=== PATIENT | male | born 1950 | race African-American/Black ===

== ENCOUNTER 2017-08-29 17:15 | Inpatient (IN) | payer MEDICARE, OTHER, SELFPAY ==
[2017-08-29] MEDS ORDERED: Acetaminophen 500 MG TAB ONE (18:37)
[2017-08-29 18:59] LABS: Hemoglobin 12.1 g/dL (14.0-18.0); Mean Corpuscular HGB CONC 32.2 g/dL (32.0-36.0); Mean Corpuscular Hemoglobin 28.3 pg (27.0-31.0); Mean Corpuscular Volume 87.7 fl (80.0-94.0); Mean Platelet Volume 8.4 fL (7.4-10.4); Platelet Count 193 thou/uL (130-400); RBC Distribution Width 13.7 % (11.5-14.5); Red Blood Cell (RBC) Count 4.28 mill/uL (4.70-6.10); White Blood Cell (WBC) Count 12.7 thou/uL (4.8-10.8)
[2017-08-29 19:17] LABS: ALT (SGPT) 11 U/L (8-55); AST (SGOT) 20 U/L (5-34); Albumin 4.5 g/dL (3.4-4.8); Alkaline Phosphatase 112 U/L (40-150); Anion Gap 11 mmol/L (10-20); BUN (Urea Nitrogen) 16 mg/dL (8.4-25.7); Bilirubin, Total 0.4 mg/dL (0.2-1.2); Calc. Creatinine Clearance 0 mL/min (70-130); Carbon Dioxide 30 mmol/L (23-31); Chloride 100 mmol/L (98-107); Estimated GFR-MDRD 57; Globulin 3.3 g/dL (2.4-3.5); Glucose 155 mg/dL (80-115); Magnesium 1.8 mg/dL (1.6-2.6); Potassium 4.2 mmol/L (3.5-5.1); Protein, Total 7.8 g/dL (5.8-8.1); Sodium 137 mmol/L (136-145)
[2017-08-29 19:22] LABS: CKMB 1.5 ng/mL (0-6.6); Troponin I 0.019 ng/mL (< 0.028)
[2017-08-29 19:24] LABS: Band 6 % (5-11); Eosinophils 1 % (0-10); Lymphocytes 19 % (21-51); MDiff Complete? YES; Monocytes 9 % (0-10); Neutrophil 63 % (42-75); Ovalocytes SLIGHT = 2-5 cells (100X) (0-1/hpf); PLT Morphology Comment Appears Adequate; Polychromasia SLIGHT = 2-3 cells (100X) (0-2/hpf); Reactive Lymphocytes 1 % (0-10)
[2017-08-29 19:45] LABS: Bilirubin Negative (Negative); Blood, Urine Negative (Negative); Clarity CLEAR (Clear); Glucose, Urine (Dipstick) Negative (Negative); Leukocyte Trace (Negative); Nitrite Negative (Negative); Protein, Urine (Dipstick) Trace mg/dL (Neg-Trace); Urobilinogen 0.2 mg/dL (0.2-1.0); pH, Urine 5.5 (5.0-9.0)
[2017-08-29 19:48] LABS: Bacteria/HPF None Seen HPF (None Seen); Hyaline Casts/LPF 0-3 HYALINE CAST LPF (0-3 Hyaline); Squamous Epithelial 0-3 HPF (0-3); WBC/HPF 0-3 HPF (0-3)
[2017-08-29] MEDS ORDERED: Piperacillin/Tazobactam 4.5 GM VIAL ONE (20:24)
--- NOTE | 2017-08-29 20:38 | RAD ---
AP VIEW CHEST: 08/29/17 HISTORY: Fever. Congestive heart failure. Sepsis. AP view chest obtained on 08/29/17. Comparison made to a previous exam from 07/26/16. AP view chest demonstrates intracardiac defibrillator. The lungs are well aerated. No evidence of act ilda intrathoracic disease seen. No evidence of effusions, pneumonia or pneumothorax seen. IMPRESSION: Unremarkable AP view chest. POS: [facility]
[2017-08-29 21:37] LABS: Troponin I 0.019 ng/mL (< 0.028)
[2017-08-29 22:50] VITALS: BMI 32.5
[2017-08-30] MEDS ORDERED: Ondansetron ODT 4 MG TAB SL PRN (00:05)
[2017-08-30] MEDS ORDERED: Ondansetron HCl/PF 4 MG/2 ML Vial IVP PRN ×2 (00:05→00:12)
[2017-08-30] MEDS ORDERED: Acetaminophen 325 MG TAB PO PRN (00:05)
[2017-08-30] MEDS ORDERED: Dextrose 5% in Water 1,000 ML IV PRN (00:12)
[2017-08-30] MEDS ORDERED: hydrALAZINE 20 MG/ML VIAL SLOW IVP PRN (00:12)
[2017-08-30] MEDS ORDERED: Dextrose 50% Abboject 50 ML SYRINGE SLOW IVP PRN (00:12)
[2017-08-30] MEDS ORDERED: HumaLOG 300 UNITS/3 ML VIAL SC PRN (00:12)
[2017-08-30] MEDS ORDERED: Acetaminophen 500 MG TAB PO PRN (00:12)
[2017-08-30] MEDS ORDERED: cloNIDine 0.1 MG TAB PO PRN (00:12)
[2017-08-30] MEDS ORDERED: Ondansetron ODT 4 MG TAB PO PRN (00:12)
[2017-08-30] MEDS ORDERED: Sodium Chloride 0.9% 1,000 ML IV SCH ×2 (00:15)
[2017-08-30] MEDS ORDERED: PROVENTIL INHALER 6.7 G (200 INHALATIONS) INH PRN (01:00)
[2017-08-30 01:09] LABS: Troponin I 0.014 ng/mL (< 0.028)
[2017-08-30] MEDS ORDERED: Piperacillin/Tazobactam 4.5 GM in Sodium Chloride 0.9% 100 ML IVPB SCH (02:00)
[2017-08-30] MEDS: Insulin NPH/Reg Insulin Hm 300 UNITS/3 ML VIAL SC SCH ×2 (02:34→22:00)
[2017-08-30 05:00] LABS: Anion Gap 14 mmol/L (10-20); BUN (Urea Nitrogen) 16 mg/dL (8.4-25.7); Calc. Creatinine Clearance 59 mL/min (70-130); Calcium 9.5 mg/dL (7.8-10.44); Carbon Dioxide 26 mmol/L (23-31); Chloride 98 mmol/L (98-107); Estimated GFR-MDRD 52; Glucose 253 mg/dL (80-115); Potassium 3.9 mmol/L (3.5-5.1); Sodium 134 mmol/L (136-145)
[2017-08-30 05:12] LABS: Band 27 % (5-11); Hemoglobin 11.3 g/dL (14.0-18.0); Hypochromia SLIGHT = 6-15 cells (100X) (0-5/hpf); Lymphocytes 13 % (21-51); MDiff Complete? YES; Mean Corpuscular HGB CONC 32.2 g/dL (32.0-36.0); Mean Corpuscular Hemoglobin 28.5 pg (27.0-31.0); Mean Corpuscular Volume 88.4 fl (80.0-94.0); Monocytes 13 % (0-10); Neutrophil 47 % (42-75); PLT Morphology Comment Appears Adequate; Platelet Count 169 thou/uL (130-400); RBC Distribution Width 13.9 % (11.5-14.5); Red Blood Cell (RBC) Count 3.95 mill/uL (4.70-6.10); White Blood Cell (WBC) Count 10.1 thou/uL (4.8-10.8)
[2017-08-30] MEDS: HumaLOG 300 UNITS/3 ML VIAL SC PRN (06:02)
--- NOTE | 2017-08-30 06:21 | HP ---
DATE OF ADMISSION: 08/30/2017 PRIMARY CARE PHYSICIAN: Dr. Sevilla at the [facility] in [place], [place]. CHIEF COMPLAINT: Fever and weakness. HISTORY OF PRESENT ILLNESS: This is a 67-year-old -Micronesian male who presents to [facility] complaining of fever of approximately 48 hours duration. The patient had notic ed fever at home up to 101 degrees Fahrenheit with some sore throat, cough, congestion, and cold-like symptoms. The patient denied any known sick contacts or family members with similar symptoms. The patient admits to some headache, rhinorrhea and nausea. The patient's noted that her wa s having difficulty with walking and looked generally weak and unsteady when he had the fever. One d ay history of diarrhea which has since resolved. No specific travel history, trauma or recent surgic al intervention. The patient denied any specific shortness of breath, purulent cough or sputum. In the emergency room, the patient underwent general evaluation including chest imaging showing no acute infiltrates. The patient received IV vancomycin, Zosyn, intravenous normal saline and acetaminophen . The patient was referred to the observation unit for further evaluation. PAST MEDICAL HISTORY: 1. Nonischemic cardiomyopathy with AICD. 2. Systolic congestive heart failure. 3. Chronic obstructive pulmonary disease. 4. Diabetes mellitus type 2, insulin requiring. 5. History of gout. 6. Hypertension. 7. History of myocardial infarction in 2013. 8. History of TIA in 2013. PAST SURGICAL HISTORY: Status post AICD placement. CURRENT MEDICATIONS: 1. Proventil HFA 1-2 puffs inhaled b.i.d. p.r.n. 2. Allopurinol 300 mg p.o. daily. 3. Aspirin 81 mg p.o. daily. 4. Lipitor 20 mg p.o. at bedtime. 5. Symbicort 160/4.5 one puff inhaled b.i.d. 6. Coreg 25 mg p.o. b.i.d. 7. Plavix 75 mg 1 tab p.o. daily. 8. Lasix 40 mg p.o. b.i.d. 9. Hydralazine 50 mg p.o. b.i.d. 10. NovoLog insulin 70/30 20 units subcutaneously before meals. 11. Levemir 30 units subcutaneously b.i.d. 12. DuoNeb 3 mL nebulized q.i.d. p.r.n. 13. Isordil 20 mg p.o. b.i.d. 14. Metformin 1000 mg p.o. b.i.d. 15. Multivitamin 1 tab p.o. daily. 16. K-Dur 20 mEq p.o. daily. 17. Entresto 97/103 mg 1 tab p.o. b.i.d. 18. Spironolactone 25 mg p.o. daily. ALLERGIES: No known drug allergies. FAMILY HISTORY: Positive for diabetes mellitus and hypertension. Mom and father with lung cancer. SOCIAL HISTORY: The patient is , accompanied by his in the hospital. [place] [facility] the [facility] ed services. Retired vacuum truck driver. No current alcohol, tobacco or illicit drug use. Functional of all activities of daily living. REVIEW OF SYSTEMS: The following complete review of systems was negative, unless otherwise mentioned in the HPI or below: Constitutional: Weight loss or gain, ability to conduct usual activities. Skin: Rash, itching. Eyes: Double vision, pain. ENT/Mouth: Nose bleeding, neck stiffness, pain, tenderness. Cardiovascular: Palpitations, dyspnea on exertion, orthopnea. Respiratory: Shortness of breath, wheezing, cough, hemoptysis, fever or night sweats. Gastrointestinal: Poor appetite, abdominal pain, heartburn, nausea, vomiting, constipation, or diarr hea. Genitourinary: Urgency, frequency, dysuria, nocturia. Musculoskeletal: Pain, swelling. Neurologic/Psychiatric: Anxiety, depression. Allergy/Immunologic: Skin rash, bleeding tendency. Otherwise negative except as stated per HPI. PHYSICAL EXAMINATION: VITAL SIGNS: On admission, blood pressure 150/68, pulse 114, respiratory rate 20, temperature 100.3 degrees Fahrenheit, O2 saturation 96% on room air. GENERAL APPEARANCE: This is a 67-year-old -Micronesian male, alert and oriented x3, pleasant, in no acute distress. HEENT: Pupils are equal, round, and reactive to light and accommodation. Extraocular muscles are in tact. No scleral icterus, no conjunctival injection. Nares patent. OP is clear. Teeth in fair rep air. NECK: Supple, no cervical adenopathy, no thyromegaly, no carotid bruits, no JVD appreciated. Cervic al spine with full active and passive range of motion. No meningeal signs appreciated. CHEST: Lungs are clear to auscultation bilaterally. CARDIOVASCULAR: S1, S2 with tachycardia. Left upper chest wall with AICD device in place. ABDOMEN: Rounded, soft, nontender, nondistended. Bowel sounds are positive in all four quadrants. There is no hepatosplenomegaly, no abdominal bruits, no rebound or guarding appreciated. EXTREMITIES: Warm and dry with fair turgor. No clubbing, cyanosis or asymmetric edema appreciated. Pulses palpable distally at the dorsalis pedis, posterior tibial, and popliteal arteries bilaterally . Capillary refill less than 2 seconds. NEUROLOGIC: Cranial nerves II-XII are grossly intact. No focal or lateralizing signs appreciated. PERTINENT LABORATORY DATA AND X-RAY FINDINGS: Sodium 137, potassium 4.2, chloride 100, CO2 of 30, BU N 16, creatinine 1.50, estimated GFR 57, lactic acid level 1.6, glucose 191, calcium 10.0, magnesium 1.8. LFTs within normal limits. Troponin I negative x2. Albumin 4.5. CBC showed a white blood lb l count 12.7, hemoglobin 12, hematocrit 38, platelet count 193 with normal differential. Urinalysis; trace leukocyte esterase. Beta hydroxybutyrate level 0.25 on 08/29/2017. Portable chest x-ray date d 08/29/2017 showed no acute cardiopulmonary process. Intracardiac defibrillator in place. ASSESSMENT AND PLAN: 1. Systemic inflammatory response syndrome. The patient will be observed on the telemetry unit. Ex act infectious source unclear currently. We will continue symptomatic and supportive measures. Empi ammon antibiotic coverage with vancomycin and Zosyn. Await final blood and urine culture results. 2. Acute kidney injury. Avoid nephrotoxic agents and contrast media. Continue intravenous normal s latosha at 50 mL per hour. Repeat creatinine in the a.m. 3. Chronic kidney disease stage 2-3. Avoid nephrotoxic agents and contrast media as stated previous ly. Continue serial creatinine monitoring. 4. Diabetes mellitus type 2, insulin requiring. We will continue insulin sliding scale for reflexiv e coverage. Continue Levemir 30 units subcutaneously b.i.d. Serial Accu-Cheks before meals and at b edtime. 5. Chronic obstructive pulmonary disease. No specific evidence of an acute exacerbation. Resume ho me regimen to include albuterol sulfate, DuoNebs and Symbicort. 6. Nonischemic cardiomyopathy with ejection fraction of 30%. Continue home medication regimen to in clude aspirin 81 mg daily and Plavix 75 mg daily. Continue Entresto 97/103 mg p.o. b.i.d. No curren t evidence to suggest an acute exacerbation. 7. Prophylaxis. Sequential compression devices while in bed. Pepcid 20 mg p.o. b.i.d. 8. Physical therapy evaluation for functional assessment. 9. Code status is FULL. Surrogate medical decision maker is patient's spouse.
[2017-08-30] MEDS: Mometasone/Formoterol 120 PUFF INHALER INH SCH ×2 (07:17→19:42)
[2017-08-30] MEDS ORDERED: metFORMIN 500 MG TAB PO SCH (08:00)
[2017-08-30] MEDS: Allopurinol 100 MG TAB PO SCH (08:26)
[2017-08-30] MEDS: Clopidogrel Bisulfate 75 MG TAB PO SCH (08:27)
[2017-08-30] MEDS: Famotidine 20 MG TAB PO SCH ×2 (08:27→21:00)
[2017-08-30] MEDS: Isosorbide Dinitrate 5 MG TAB PO SCH ×2 (08:27→21:40)
[2017-08-30] MEDS: hydrALAZINE 25 MG TAB PO SCH ×2 (08:27→21:40)
[2017-08-30] MEDS: Carvedilol 25 MG TAB PO SCH ×2 (08:27→21:40)
[2017-08-30] MEDS: Multivitamin W/ Minerals 1 TAB PO SCH (08:30)
[2017-08-30] MEDS: Insulin Glargine 30 UNITS in Pre-Filled Syringe 1 EACH SC SCH ×2 (08:33→21:41)
[2017-08-30] MEDS ORDERED: Furosemide 40 MG TAB PO SCH (09:00)
[2017-08-30] MEDS ORDERED: Non-Formulary Item 1 EACH (Insulin Detemir 100 Units/Ml [Levemir] 30 UNIT) SQ SCH (09:00)
[2017-08-30] MEDS ORDERED: Potassium Chloride 20 MEQ TAB PO SCH (09:00)
[2017-08-30] MEDS ORDERED: Spironolactone 25 MG TAB PO SCH (09:00)
[2017-08-30] MEDS: Sacubitril 49 MG/Valsartan 51 MG TABLET PO SCH ×2 (09:34→21:39)
[2017-08-30 10:04] LABS: Troponin I 0.048 ng/mL (< 0.028)
--- NOTE | 2017-08-30 10:24 | PDOC.EVN ---
Event Note - Event Note Event Note: Responded to CODE GREEN. Per nursing, patient became acutely SOB and diaphoretic. Informed provider that he was admitted for Fever with out a source. Most recent temp was 101F. Nurse stated that he received his home BP meds roughly 1 hour prior to the onset of symptoms. Recommended repeat lactic acid and troponin. Also instructed to finish fluids in bag at bedside ( approximately 500 mL) and give additional 1L bolus if needed. Called back approximately 1 hour after code was called. Nurse informed provider that his pulse had decreased and his BP had improved. Advised to follow up with primary team for further instructions.
[2017-08-30] MEDS: Piperacillin/Tazobactam 3.375 GM in Sodium Chloride 0.9% 100 ML IVPB SCH ×2 (12:40→21:40)
--- NOTE | 2017-08-30 15:33 | ULT ---
ULTRASOUND WITH DOPPLER DUPLEX VENOUS LOWER EXTREMITIES BILATERAL: HISTORY: 67-year-old male with bilateral lower extremity pain. TECHNIQUE: Color flow Doppler, spectral waveform analysis of pulsed Doppler, and blackmon-scale imaging with jose faye and augmentation, were used to evaluate the bilateral common femoral, femoral, popliteal, survey cad technician ior tibial, and superficial femoral, veins; and the proximal portions of the profunda femoral and gre ater saphenous, veins. FINDINGS: There is normal compressibility, demonstration of blood flow by color Doppler and pulsed Doppler, and response to augmentation, in all interrogated veins. IMPRESSION: Negative. No deep vein thrombosis in the bilateral lower extremities. jn[] POS: [facility]
--- NOTE | 2017-08-30 16:56 | PDOC.PN ---
- Subjective Encounter Start Date: 08/30/17 Encounter Start Time: 10:35 Patient was seen today, had a Code green this morning for Low bloo pressures and SOB. pt has knonw h/o CHF with poor EF and was febrile with 101, with bodypains, likely viral syndrome. Pt is on IV fluids. - Objective MAR Reviewed: Yes Vital Signs & Weight: Vital Signs (12 hours) Temp Pulse Resp BP Pulse Ox 08/30/17 16:00 99.1 F 97 20 142/73 H 94 L 08/30/17 11:40 98.6 F 94 20 116/63 96 I&O: 08/29/17 08/30/17 08/31/17 06:59 06:59 06:59 Intake Total 1478 Balance 1478 Result Diagrams: 08/30/17 00:38 08/30/17 00:38 Radiology Reviewed by me: Yes Phys Exam - Physical Examination HEENT: PERRLA, moist MMs Neck: no nodes, no JVD Respiratory: no wheezing, no rales Cardiovascular: RRR, no significant murmur Gastrointestinal: soft, non-tender Musculoskeletal: no edema, pulses present Lymphatic: no nodes Psychiatric: normal affect, A&O x 3 Dx/Plan (1) SIRS (systemic inflammatory response syndrome) Code(s): R65.10 - SIRS OF NON-INFECTIOUS ORIGIN W/O ACUTE ORGAN DYSFUNCTION Status: Acute Comment: Will start Emperric Antibitoics covering gram neg and Gram positive cooci, Anerobic, With levofloxacin and Zosyn, will do Procalctonin , Crp, waiti for blood Cultured, pt has fever, Low Blood pressure, hypoxia, No other source of infection. (2) Hypotension Status: Acute Qualifiers: Hypotension type: other hypotension type Qualified Code(s): I95.89 - Other hypotension Comment: Pt is GIven Fluid bolus with End organ hypoperfusion causing hypoxia and altered mental status.Will continue Fluids until Blood pressure > 110, Hold lasix/Spironlacrone, Continue Entresto. (3) CHF (congestive heart failure), NYHA class IV Code(s): I50.9 - HEART FAILURE, UNSPECIFIED Status: Acute Comment: Will repeat Echo, will consult Cardioogy if worseing EF and Worseing Trop. (4) COPD (chronic obstructive pulmonary disease) Status: Acute Qualifiers: COPD type: unspecified COPD Qualified Code(s): J44.9 - Chronic obstructive pulmonary disease, unspecified Comment: No exacerbation, continue Nebs prn/ (5) Cardiomyopathy Code(s): I42.9 - CARDIOMYOPATHY, UNSPECIFIED Status: Acute (6) Type 2 diabetes mellitus Status: Acute Comment: continue SSI, hold metformin. (7) NSTEMI (non-ST elevated myocardial infarction) Code(s): I21.4 - NON-ST ELEVATION (NSTEMI) MYOCARDIAL INFARCTION Status: Acute Comment: Continue Aspirin, BB, Lovenox. - Plan cont current plan of care, plan discussed w/ family, continue antibiotics, PT/OT , social services manager, respiratory therapy, incentive spirometry, DVT proph w/ lovenox * . Review of Systems - Review of Systems Respiratory: negative: Cough, Dry, Shortness of Breath, Hemoptysis, SOB with Excertion, Pleuritic Pain, Sputum, Wheezing Cardiovascular: negative: chest pain, palpitations, orthopnea, paroxysmal nocturnal dyspnea, edema, light headedness, other Gastrointestinal: negative: Nausea, Vomiting, Abdominal Pain, Diarrhea, Constipation, Melena, Hematochezia, Other Musculoskeletal: negative: Neck Pain, Shoulder Pain, Arm Pain, Back Pain, Hand Pain, Leg Pain, Foot Pain, Other Skin: negative: Rash, Lesions, Erick, Bruising, Other - Medications/Allergies Allergies/Adverse Reactions: Allergies Allergy/AdvReac Type Severity Reaction Status Date / Time No Known Allergies Allergy Verified 08/29/17 23:18 Medications: Current Medications Acetaminophen (Tylenol) 1,000 mg PO Q6H PRN PRN Reason: Headache/Fever or Mild Pain Albuterol Sulfate (Proventil Hfa) 2 puff INH Q4H PRN PRN Reason: SOB &/or Wheezing Albuterol/Ipratropium (Duoneb) 3 ml NEB QID PRN PRN Reason: SOB &/or Wheezing Allopurinol (Zyloprim) 300 mg PO DAILY [facility] Last Admin: 08/30/17 08:26 Dose: 300 mg Aspirin (Aspirin Chewable) 81 mg PO DAILY [facility] Last Admin: 08/30/17 08:27 Dose: 81 mg Carvedilol (Coreg) 25 mg PO BID [facility] Last Admin: 08/30/17 08:27 Dose: 25 mg Clonidine (Catapres) 0.1 mg PO Q4H PRN PRN Reason: Systolic BP > 180 Clopidogrel Bisulfate (Plavix) 75 mg PO DAILY [facility] Last Admin: 08/30/17 08:27 Dose: 75 mg Dextrose/Water (Dextrose 50%) 25 gm SLOW IVP PRN PRN PRN Reason: Hypoglycemia Famotidine (Pepcid) 20 mg PO BID [facility] Last Admin: 08/30/17 08:27 Dose: 20 mg Glucagon (Glucagon) 1 mg IM PRN PRN PRN Reason: Hypoglycemia Hydralazine HCl (Apresoline) 20 mg SLOW IVP Q4H PRN PRN Reason: Systolic BP > 180 Hydralazine HCl (Apresoline) 50 mg PO BID [facility] Last Admin: 08/30/17 08:27 Dose: 50 mg Dextrose/Water (D5w) 1,000 mls @ 0 mls/hr IV .Q0M PRN; As Directed PRN Reason: Hypoglycemia Insulin Glargine 30 units/ (Miscellaneous Medication) 0.3 mls @ 0 mls/hr SC BID [facility] Last Admin: 08/30/17 08:33 Dose: 0.3 mls Levofloxacin 500 mg/ Device 100 mls @ 100 mls/hr IVPB 1100 [facility] Last Admin: 08/30/17 10:36 Dose: 100 mls Piperacillin Sod/Tazobactam (Sod 3.375 gm/ Sodium Chloride) 100 mls @ 200 mls/ hr IVPB 0400,1200,2000 [facility] Last Admin: 08/30/17 12:40 Dose: 100 mls Insulin Human Isoph/Insulin Regular (Humulin 70/30) 20 units SC HS [facility] Last Admin: 08/30/17 02:34 Dose: 20 units Insulin Human Lispro (Humalog) 0 units SC .MODERATE SLIDING SC PRN PRN Reason: Moderate Correctional Scale Last Admin: 08/30/17 06:02 Dose: 2 unit Insulin Human Lispro (Humalog) 0 units SC .BEDTIME SLIDING SC PRN PRN Reason: Bedtime Correctional Scale Iron/Minerals/Multivitamins (Theragran M) 1 tab PO DAILY [facility] Last Admin: 08/30/17 08:30 Dose: 1 tab Isosorbide Dinitrate (Isordil) 20 mg PO BID [facility] Last Admin: 08/30/17 08:27 Dose: 20 mg Mometasone Furoate/Formoterol Fumar (Dulera 200 Mcg/5 Mcg Inhaler) 1 puff INH BID-RT [facility] Last Admin: 08/30/17 07:17 Dose: 1 puff Ondansetron HCl (Zofran Odt) 4 mg PO Q6H PRN PRN Reason: Nausea/Vomiting Ondansetron HCl (Zofran) 4 mg IVP Q6H PRN PRN Reason: Nausea/Vomiting Sacubitril/Valsartan (Entresto 49 Mg-51 Mg Tablet) 2 tab PO BID [facility] Last Admin: 08/30/17 09:34 Dose: Not Given
[2017-08-31] MEDS: Piperacillin/Tazobactam 3.375 GM in Sodium Chloride 0.9% 100 ML IVPB SCH ×2 (03:55→13:20)
[2017-08-31] MEDS: Famotidine 20 MG TAB PO SCH ×2 (09:49→21:27)
[2017-08-31] MEDS: Allopurinol 100 MG TAB PO SCH (09:49)
[2017-08-31] MEDS: Multivitamin W/ Minerals 1 TAB PO SCH (09:50)
[2017-08-31] MEDS: Isosorbide Dinitrate 5 MG TAB PO SCH ×2 (09:50→21:28)
[2017-08-31] MEDS: hydrALAZINE 25 MG TAB PO SCH ×2 (09:50→21:27)
[2017-08-31] MEDS: Clopidogrel Bisulfate 75 MG TAB PO SCH (09:50)
[2017-08-31] MEDS: Carvedilol 25 MG TAB PO SCH ×2 (09:50→21:27)
[2017-08-31] MEDS: Insulin Glargine 30 UNITS in Pre-Filled Syringe 1 EACH SC SCH ×2 (09:51→21:28)
[2017-08-31] MEDS: Mometasone/Formoterol 120 PUFF INHALER INH SCH ×2 (10:52→19:44)
[2017-08-31 11:17] LABS: #Basophils 0.1 thou/uL (0.0-0.2); #Eosinphils 0.2 thou/uL (0.0-0.7); #Lymphocytes 1.9 thou/uL (1.20-3.40); #Neutrophils 6.9 thou/uL (1.40-6.50); %Basophils 0.7 % (0.0-1.0); %Eosinophils 2.3 % (0.0-10.0); %Lymphocytes 18.9 % (21.0-51.0); %Monocytes 10.1 % (0.0-10.0); %Neutrophils 68.1 % (42.0-75.0); Hemoglobin 10.9 g/dL (14.0-18.0); Mean Corpuscular HGB CONC 33.9 g/dL (32.0-36.0); Mean Corpuscular Hemoglobin 29.9 pg (27.0-31.0); Mean Corpuscular Volume 88.1 fl (80.0-94.0); Mean Platelet Volume 8.1 fL (7.4-10.4); Platelet Count 149 thou/uL (130-400); RBC Distribution Width 13.6 % (11.5-14.5); Red Blood Cell (RBC) Count 3.63 mill/uL (4.70-6.10); White Blood Cell (WBC) Count 10.2 thou/uL (4.8-10.8)
[2017-08-31 11:35] LABS: Anion Gap 10 mmol/L (10-20); BUN (Urea Nitrogen) 13 mg/dL (8.4-25.7); Calc. Creatinine Clearance 66 mL/min (70-130); Carbon Dioxide 27 mmol/L (23-31); Chloride 102 mmol/L (98-107); Estimated GFR-MDRD 59; Glucose 266 mg/dL (80-115); Potassium 3.9 mmol/L (3.5-5.1); Sodium 135 mmol/L (136-145)
[2017-08-31] MEDS: Sacubitril 49 MG/Valsartan 51 MG TABLET PO SCH ×2 (11:36→21:27)
[2017-08-31] MEDS: HumaLOG 300 UNITS/3 ML VIAL SC PRN ×2 (11:37→17:03)
--- NOTE | 2017-08-31 15:47 | CON ---
DATE OF CONSULTATION: 08/31/2017 DATE OF ADMISSION: 08/30/2017 INDICATION FOR CONSULTATION: This is a 67-year-old patient with known nonischemic cardiomyopathy. HISTORY OF PRESENT ILLNESS: This is a very pleasant 67-year-old gentleman, who has a long history of nonischemic cardiomyopathy, who underwent AICD implantation, 04/2014. He has been seen in [place] a nd has been discussed for an LVAD as well as a transplant. The patient has turned down both of these options. He has had a cardiac catheterization, which showed normal coronary arteries, but severe de crease in left ventricular systolic function with ejection fraction being in around 30% since 2014; h owever, echocardiogram yesterday showed ejection fraction about 15%-20%. He presented to the [facility] after his family says that he became more lethargic and was complaining of not being able to walk r ight. He felt somewhat dizzy and unsteady gait. He also had a fever up to 101.7. He was brought in to the emergency room and was admitted for further evaluation and treatment. I did not see any evide nce of vegetations from his AICD leads or valves yesterday; however, if he has any evidence of possib le endocarditis, then a transesophageal echocardiogram may give further information. At this time, mily milan denies any chest pain. He has no significant shortness of breath. PAST MEDICAL HISTORY: Significant for the cardiomyopathy, which is nonischemic in nature. He has a history of AICD implant. He has a history of diabetes, hypertension, chronic kidney disease, history of COPD, and gout. PAST SURGICAL HISTORY: He has had no other significant surgical history except for the AICD implant. MEDICATIONS: From home include Coreg 25 mg b.i.d., hydralazine 50 mg b.i.d., Entresto 97/103 one b.i .d., isosorbide dinitrate 20 mg b.i.d., Lasix 40 mg b.i.d. He is to hold the Lasix if blood pressure is less than 100/60, Plavix of 75 mg a day, atorvastatin 40 mg a day, Symbicort inhaler, NovoLog ins ulin as needed prescribing by his primary doctor, multivitamins. He takes Levemir FlexPen also, metf ormin 1000 mg b.i.d., potassium 20 mEq a half a tablet daily, Aldactone 25 mg a day, aspirin 81 mg a day, allopurinol 300 mg a day, aerosol nebulizer treatment with albuterol. FAMILY HISTORY: Unremarkable for any early heart disease. SOCIAL HISTORY: There is a history of significant alcohol or tobacco abuse. REVIEW OF SYSTEMS: He wears glasses, has false teeth. He has gastroesophageal reflux disease, compl ained of mild dizziness and unsteady gait. Otherwise, 12-point review of systems is unremarkable. PHYSICAL EXAMINATION: GENERAL: Reveals a very pleasant middle-aged, well-developed gentleman, who is in no acute distress at this time. He is alert and oriented. VITAL SIGNS: Blood pressure is 120/71, heart rate is 90 and regular, respiratory rate is 12. He is afebrile. O2 saturation 94%. HEENT EXAM: Shows the head to be normocephalic and atraumatic. Carotid pulses are present. There a re no bruits. CHEST: Clear to auscultation without rales, rhonchi, or wheezing. CARDIOVASCULAR EXAM: Reveals a regular rate and rhythm. I did not hear any significant murmurs, hea ves, thrills, bruits, or rubs. ABDOMINAL EXAM: Soft and nontender with positive bowel sounds. No organomegaly or masses are noted. Femoral pulses are present. EXTREMITIES: Show no clubbing, cyanosis, edema. Pedal pulses are present. NEUROLOGIC: The patient appears to be fully intact. SKIN: Warm and dry. He has a well-healed surgical incision over the AICD site, underneath the left infraclavicular area. There are no other significant abnormalities noted on the physical examination except he has a very small umbilical hernia, which is easily reducible. LABORATORY DATA: Shows cardiac enzymes to be negative. Creatinine is 1.61, BUN of 16, hemoglobin is 11.3, WBC is 10.1 with 27% bands, which is somewhat unusual, but the patient does not appear to be s eptic at this time. IMPRESSION: 1. Nonischemic cardiomyopathy, for which the patient has refused to undergo left ventricular assist device or transplant. We will continue medical management. 2. Status post automatic implantable cardioverter-defibrillator implant. The last interrogation was within normal limits, but given the patient has had elevated temperature and has elevation of the ba nds to 27% with slight elevation of WBC of 10.5, he may need to undergo a transesophageal echocardiog jesse. We will discuss this with Dr. Tello when he returns tomorrow. 3. History of diabetes. This will be dealt with by the primary care services, very poorly controlle d at this time. His blood sugar was 253. 4. Hypertension. This is stable at this time. 5. Chronic kidney disease. This also appears to be relatively stable. Will be dealt with by the ne phrologist. 6. Chronic obstructive pulmonary disease. He is very stable at this time, but we will continue to m onitor his O2 saturations. Apparently, yesterday morning, he had an episode where he had decreased blood pressure and became bill ewhat unresponsive. He was given IV fluids and this returned, but did not appear to be pulmonary at that time. We would be more than happy to continue to follow the patient with you, but if the patien t refuses further treatment for an left ventricular assist device or automatic implantable cardiovert er-defibrillator, we may need to consider palliative therapy if ejection fraction does not improve wi th medical management. It is possible that the ejection fraction was decreased and the patient indee d had a viral syndrome and this may have some improvement over the next 1-2 months if this is the thierry e.
[2017-08-31] MEDS: Insulin NPH/Reg Insulin Hm 300 UNITS/3 ML VIAL SC SCH (21:29)
[2017-09-01] MEDS: Mometasone/Formoterol 120 PUFF INHALER INH SCH ×2 (08:46→19:13)
[2017-09-01] MEDS: Isosorbide Dinitrate 5 MG TAB PO SCH ×2 (09:16→21:06)
[2017-09-01] MEDS: Multivitamin W/ Minerals 1 TAB PO SCH (09:17)
[2017-09-01] MEDS: Spironolactone 25 MG TAB PO SCH (09:17)
[2017-09-01] MEDS: hydrALAZINE 25 MG TAB PO SCH ×2 (09:18→21:06)
[2017-09-01] MEDS: Famotidine 20 MG TAB PO SCH ×2 (09:18→21:05)
[2017-09-01] MEDS: Clopidogrel Bisulfate 75 MG TAB PO SCH (09:18)
[2017-09-01] MEDS: Furosemide 20 MG TAB PO SCH (09:19)
[2017-09-01] MEDS: Insulin Glargine 30 UNITS in Pre-Filled Syringe 1 EACH SC SCH ×2 (09:19→21:08)
[2017-09-01] MEDS: Carvedilol 25 MG TAB PO SCH ×2 (09:19→21:05)
[2017-09-01] MEDS: Sacubitril 49 MG/Valsartan 51 MG TABLET PO SCH ×2 (09:19→21:07)
[2017-09-01] MEDS: Allopurinol 100 MG TAB PO SCH (09:19)
--- NOTE | 2017-09-01 11:18 | PDOC.PN ---
- Subjective Encounter Start Date: 08/31/17 Encounter Start Time: 11:00 Patient is seen today, alert and oriented. No other concerns oted. He feels much better and in jovial mood. - Objective MAR Reviewed: Yes Vital Signs & Weight: Vital Signs (12 hours) Temp Pulse Resp BP Pulse Ox 09/01/17 09:18 92 09/01/17 09:11 97.7 F 92 17 120/63 96 09/01/17 03:48 97.9 F 77 13 124/67 97 09/01/17 00:00 97.7 F 90 14 114/55 L 95 Weight Weight 207 lb 1 oz I&O: 08/31/17 09/01/17 09/02/17 06:59 06:59 06:59 Intake Total 2413 1060 Output Total 2125 Balance 2413 -1065 Result Diagrams: 08/31/17 10:59 08/31/17 10:59 Additional Labs: Accuchecks 09/01/17 08/31/17 08/31/17 05:55 21:19 16:12 POC Glucose 124 H 259 H 225 H 08/31/17 11:25 POC Glucose 260 H Radiology Reviewed by me: Yes Phys Exam - Physical Examination HEENT: PERRLA, moist MMs Neck: no nodes, no JVD Respiratory: no wheezing, no rales Cardiovascular: RRR, no significant murmur Gastrointestinal: soft, non-tender Musculoskeletal: no edema Neurological: non-focal, normal sensation Psychiatric: normal affect, A&O x 3 Dx/Plan (1) SIRS (systemic inflammatory response syndrome) Code(s): R65.10 - SIRS OF NON-INFECTIOUS ORIGIN W/O ACUTE ORGAN DYSFUNCTION Status: Acute Comment: Will start Emperric Antibitoics covering gram neg and Gram positive cooci, Anerobic, With levofloxacin and Zosyn, all inflammatory markers normal. will d/c zosyn. (2) Hypotension Status: Acute Qualifiers: Hypotension type: other hypotension type Qualified Code(s): I95.89 - Other hypotension Comment: Pt is GIven Fluid bolus with End organ hypoperfusion causing hypoxia and altered mental status.Will continue Fluids until Blood pressure > 110, Hold lasix/Spironlacrone, Continue Entresto. (3) CHF (congestive heart failure), NYHA class IV Code(s): I50.9 - HEART FAILURE, UNSPECIFIED Status: Acute Comment: Worseing EF, consulted . She recommeded to Monitor him crystalley, pt is very noncompliant. Pt has AICD, no firing of the Defibrilator. 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 (4) COPD (chronic obstructive pulmonary disease) Status: Acute Qualifiers: COPD type: unspecified COPD Qualified Code(s): J44.9 - Chronic obstructive pulmonary disease, unspecified Comment: No exacerbation, continue Nebs prn/ (5) Cardiomyopathy Code(s): I42.9 - CARDIOMYOPATHY, UNSPECIFIED Status: Acute (6) Type 2 diabetes mellitus Status: Acute Comment: continue SSI, hold metformin. (7) NSTEMI (non-ST elevated myocardial infarction) Code(s): I21.4 - NON-ST ELEVATION (NSTEMI) MYOCARDIAL INFARCTION Status: Acute Comment: Continue Aspirin, BB, Lovenox. - Plan cont current plan of care, plan discussed w/ family, PT/OT, social worker psychiatric, speech therapy, incentive spirometry, out of bed/ambulate, DVT proph w/lovenox * . Review of Systems - Review of Systems Constitutional: negative: fever, chills, sweats, weakness, malaise, other Eyes: negative: Pain, Vision Change, Conjunctivae Inflammation, Eyelid Inflammation, Redness, Other Respiratory: negative: Cough, Dry, Shortness of Breath, Hemoptysis, SOB with Excertion, Pleuritic Pain, Sputum, Wheezing Cardiovascular: negative: chest pain, palpitations, orthopnea, paroxysmal nocturnal dyspnea, edema, light headedness, other Gastrointestinal: negative: Nausea, Vomiting, Abdominal Pain, Diarrhea, Constipation, Melena, Hematochezia, Other Musculoskeletal: negative: Neck Pain, Shoulder Pain, Arm Pain, Back Pain, Hand Pain, Leg Pain, Foot Pain, Other - Medications/Allergies Allergies/Adverse Reactions: Allergies Allergy/AdvReac Type Severity Reaction Status Date / Time No Known Allergies Allergy Verified 08/29/17 23:18 Medications: Current Medications Acetaminophen (Tylenol) 1,000 mg PO Q6H PRN PRN Reason: Headache/Fever or Mild Pain Last Admin: 08/30/17 19:59 Dose: 1,000 mg Albuterol Sulfate (Proventil Hfa) 2 puff INH Q4H PRN PRN Reason: SOB &/or Wheezing Albuterol/Ipratropium (Duoneb) 3 ml NEB QID PRN PRN Reason: SOB &/or Wheezing Allopurinol (Zyloprim) 300 mg PO DAILY [facility] Last Admin: 09/01/17 09:19 Dose: 300 mg Aspirin (Aspirin Chewable) 81 mg PO DAILY [facility] Last Admin: 09/01/17 09:19 Dose: 81 mg Carvedilol (Coreg) 25 mg PO BID [facility] Last Admin: 09/01/17 09:19 Dose: 25 mg Clonidine (Catapres) 0.1 mg PO Q4H PRN PRN Reason: Systolic BP > 180 Clopidogrel Bisulfate (Plavix) 75 mg PO DAILY [facility] Last Admin: 09/01/17 09:18 Dose: 75 mg Dextrose/Water (Dextrose 50%) 25 gm SLOW IVP PRN PRN PRN Reason: Hypoglycemia Famotidine (Pepcid) 20 mg PO BID [facility] Last Admin: 09/01/17 09:18 Dose: 20 mg Furosemide (Lasix) 20 mg PO DAILY [facility] Last Admin: 09/01/17 09:19 Dose: 20 mg Glucagon (Glucagon) 1 mg IM PRN PRN PRN Reason: Hypoglycemia Hydralazine HCl (Apresoline) 20 mg SLOW IVP Q4H PRN PRN Reason: Systolic BP > 180 Hydralazine HCl (Apresoline) 50 mg PO BID [facility] Last Admin: 09/01/17 09:18 Dose: 50 mg Dextrose/Water (D5w) 1,000 mls @ 0 mls/hr IV .Q0M PRN; As Directed PRN Reason: Hypoglycemia Insulin Glargine 30 units/ (Miscellaneous Medication) 0.3 mls @ 0 mls/hr SC BID [facility] Last Admin: 09/01/17 09:19 Dose: 0.3 mls Levofloxacin 500 mg/ Device 100 mls @ 100 mls/hr IVPB 1100 [facility] Last Admin: 08/31/17 11:36 Dose: 100 mls Insulin Human Isoph/Insulin Regular (Humulin 70/30) 20 units SC HS [facility] Last Admin: 08/31/17 21:29 Dose: 20 units Insulin Human Lispro (Humalog) 0 units SC .MODERATE SLIDING SC PRN PRN Reason: Moderate Correctional Scale Last Admin: 08/31/17 17:03 Dose: 4 unit Insulin Human Lispro (Humalog) 0 units SC .BEDTIME SLIDING SC PRN PRN Reason: Bedtime Correctional Scale Iron/Minerals/Multivitamins (Theragran M) 1 tab PO DAILY [facility] Last Admin: 09/01/17 09:17 Dose: 1 tab Isosorbide Dinitrate (Isordil) 20 mg PO BID [facility] Last Admin: 09/01/17 09:16 Dose: 20 mg Mometasone Furoate/Formoterol Fumar (Dulera 200 Mcg/5 Mcg Inhaler) 1 puff INH BID-RT [facility] Last Admin: 09/01/17 08:46 Dose: 1 puff Ondansetron HCl (Zofran Odt) 4 mg PO Q6H PRN PRN Reason: Nausea/Vomiting Ondansetron HCl (Zofran) 4 mg IVP Q6H PRN PRN Reason: Nausea/Vomiting Sacubitril/Valsartan (Entresto 49 Mg-51 Mg Tablet) 2 tab PO BID [facility] Last Admin: 09/01/17 09:19 Dose: 2 tab Sodium Chloride (Flush - Normal Saline) 10 ml IVF Q12HR [facility] Last Admin: 08/31/17 21:00 Dose: 10 ml Sodium Chloride (Flush - Normal Saline) 10 ml IVF PRN PRN PRN Reason: Saline Flush Spironolactone (Aldactone) 12.5 mg PO QAM-WM [facility] Last Admin: 09/01/17 09:17 Dose: 12.5 mg
[2017-09-01] MEDS: HumaLOG 300 UNITS/3 ML VIAL SC PRN ×2 (12:05→17:41)
--- NOTE | 2017-09-01 14:31 | PDOC.PN ---
- Subjective Encounter Start Date: 09/01/17 Encounter Start Time: 10:00 Claudia is seen along with Family mebers at bedside, Discussed with Dr. Mclean, cardiololgy planned for VELMA tomorrow to r/o Clot /Endocarditis, - Objective MAR Reviewed: Yes Vital Signs & Weight: Vital Signs (12 hours) Temp Pulse Resp BP Pulse Ox 09/01/17 12:01 97.7 F 82 17 113/59 L 95 09/01/17 09:18 92 09/01/17 09:11 97.7 F 92 17 120/63 96 09/01/17 03:48 97.9 F 77 13 124/67 97 Weight Weight 207 lb 1 oz I&O: 08/31/17 09/01/17 09/02/17 06:59 06:59 06:59 Intake Total 2413 1060 Output Total 2125 Balance 2413 -1065 Result Diagrams: 08/31/17 10:59 08/31/17 10:59 Additional Labs: Accuchecks 09/01/17 09/01/17 08/31/17 11:41 05:55 21:19 POC Glucose 252 H 124 H 259 H 08/31/17 16:12 POC Glucose 225 H Radiology Reviewed by me: Yes Phys Exam - Physical Examination HEENT: PERRLA, moist MMs Neck: no nodes, no JVD, supple Respiratory: no wheezing, no rales Cardiovascular: RRR, no significant murmur Gastrointestinal: soft, non-tender Musculoskeletal: no edema, pulses present Neurological: non-focal, normal sensation Lymphatic: no nodes Psychiatric: normal affect, A&O x 3 Dx/Plan (1) SIRS (systemic inflammatory response syndrome) Code(s): R65.10 - SIRS OF NON-INFECTIOUS ORIGIN W/O ACUTE ORGAN DYSFUNCTION Status: Acute Comment: Will start Emperric Antibitoics covering gram neg and Gram positive cooci, Anerobic, With levofloxacin . Will wait to R/o Endocarditis , with VELMA. (2) Hypotension Status: Acute Qualifiers: Hypotension type: other hypotension type Qualified Code(s): I95.89 - Other hypotension Comment: Pt is GIven Fluid bolus with End organ hypoperfusion causing hypoxia and altered mental status.Will d/c Fluids continue lasix/Spironlacrone, Continue Entresto. (3) CHF (congestive heart failure), NYHA class IV Code(s): I50.9 - HEART FAILURE, UNSPECIFIED Status: Acute Comment: Worseing EF, consulted . She recommeded to Monitor him closley, pt is very noncompliant. Pt has AICD, no firing of the Defibrilator. 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 (4) COPD (chronic obstructive pulmonary disease) Status: Acute Qualifiers: COPD type: unspecified COPD Qualified Code(s): J44.9 - Chronic obstructive pulmonary disease, unspecified Comment: No exacerbation, continue Nebs prn/ (5) Cardiomyopathy Code(s): I42.9 - CARDIOMYOPATHY, UNSPECIFIED Status: Acute Comment: Likely Viral now. (6) Type 2 diabetes mellitus Status: Acute Comment: continue SSI, hold metformin. (7) NSTEMI (non-ST elevated myocardial infarction) Code(s): I21.4 - NON-ST ELEVATION (NSTEMI) MYOCARDIAL INFARCTION Status: Acute Comment: Continue Aspirin, BB, Lovenox. - Plan cont current plan of care, plan discussed w/ family, carlson catheter, continue antibiotics, PT/OT, respiratory therapy, incentive spirometry * . Review of Systems - Review of Systems Eyes: negative: Pain, Vision Change, Conjunctivae Inflammation, Eyelid Inflammation, Redness, Other ENT: negative: Ear Pain, Ear Discharge, Nose Pain, Nose Discharge, Nose Congestion, Mouth Pain, Mouth Swelling, Throat Pain, Throat Swelling, Other Respiratory: negative: Cough, Dry, Shortness of Breath, Hemoptysis, SOB with Excertion, Pleuritic Pain, Sputum, Wheezing Cardiovascular: negative: chest pain, palpitations, orthopnea, paroxysmal nocturnal dyspnea, edema, light headedness, other Gastrointestinal: negative: Nausea, Vomiting, Abdominal Pain, Diarrhea, Constipation, Melena, Hematochezia, Other Musculoskeletal: negative: Neck Pain, Shoulder Pain, Arm Pain, Back Pain, Hand Pain, Leg Pain, Foot Pain, Other Skin: negative: Rash, Lesions, Erick, Bruising, Other - Medications/Allergies Allergies/Adverse Reactions: Allergies Allergy/AdvReac Type Severity Reaction Status Date / Time No Known Allergies Allergy Verified 08/29/17 23:18 Medications: Current Medications Acetaminophen (Tylenol) 1,000 mg PO Q6H PRN PRN Reason: Headache/Fever or Mild Pain Last Admin: 08/30/17 19:59 Dose: 1,000 mg Albuterol Sulfate (Proventil Hfa) 2 puff INH Q4H PRN PRN Reason: SOB &/or Wheezing Albuterol/Ipratropium (Duoneb) 3 ml NEB QID PRN PRN Reason: SOB &/or Wheezing Allopurinol (Zyloprim) 300 mg PO DAILY [facility] Last Admin: 09/01/17 09:19 Dose: 300 mg Aspirin (Aspirin Chewable) 81 mg PO DAILY [facility] Last Admin: 09/01/17 09:19 Dose: 81 mg Carvedilol (Coreg) 25 mg PO BID [facility] Last Admin: 09/01/17 09:19 Dose: 25 mg Clonidine (Catapres) 0.1 mg PO Q4H PRN PRN Reason: Systolic BP > 180 Clopidogrel Bisulfate (Plavix) 75 mg PO DAILY [facility] Last Admin: 09/01/17 09:18 Dose: 75 mg Dextrose/Water (Dextrose 50%) 25 gm SLOW IVP PRN PRN PRN Reason: Hypoglycemia Famotidine (Pepcid) 20 mg PO BID [facility] Last Admin: 09/01/17 09:18 Dose: 20 mg Furosemide (Lasix) 20 mg PO DAILY [facility] Last Admin: 09/01/17 09:19 Dose: 20 mg Glucagon (Glucagon) 1 mg IM PRN PRN PRN Reason: Hypoglycemia Hydralazine HCl (Apresoline) 20 mg SLOW IVP Q4H PRN PRN Reason: Systolic BP > 180 Hydralazine HCl (Apresoline) 50 mg PO BID [facility] Last Admin: 09/01/17 09:18 Dose: 50 mg Dextrose/Water (D5w) 1,000 mls @ 0 mls/hr IV .Q0M PRN; As Directed PRN Reason: Hypoglycemia Insulin Glargine 30 units/ (Miscellaneous Medication) 0.3 mls @ 0 mls/hr SC BID [facility] Last Admin: 09/01/17 09:19 Dose: 0.3 mls Levofloxacin 500 mg/ Device 100 mls @ 100 mls/hr IVPB 1100 [facility] Last Admin: 09/01/17 12:04 Dose: 100 mls Insulin Human Isoph/Insulin Regular (Humulin 70/30) 20 units SC HS [facility] Last Admin: 08/31/17 21:29 Dose: 20 units Insulin Human Lispro (Humalog) 0 units SC .MODERATE SLIDING SC PRN PRN Reason: Moderate Correctional Scale Last Admin: 09/01/17 12:05 Dose: 6 unit Insulin Human Lispro (Humalog) 0 units SC .BEDTIME SLIDING SC PRN PRN Reason: Bedtime Correctional Scale Iron/Minerals/Multivitamins (Theragran M) 1 tab PO DAILY [facility] Last Admin: 09/01/17 09:17 Dose: 1 tab Isosorbide Dinitrate (Isordil) 20 mg PO BID [facility] Last Admin: 09/01/17 09:16 Dose: 20 mg Mometasone Furoate/Formoterol Fumar (Dulera 200 Mcg/5 Mcg Inhaler) 1 puff INH BID-RT [facility] Last Admin: 09/01/17 08:46 Dose: 1 puff Ondansetron HCl (Zofran Odt) 4 mg PO Q6H PRN PRN Reason: Nausea/Vomiting Ondansetron HCl (Zofran) 4 mg IVP Q6H PRN PRN Reason: Nausea/Vomiting Sacubitril/Valsartan (Entresto 49 Mg-51 Mg Tablet) 2 tab PO BID [facility] Last Admin: 09/01/17 09:19 Dose: 2 tab Sodium Chloride (Flush - Normal Saline) 10 ml IVF Q12HR [facility] Last Admin: 08/31/17 21:00 Dose: 10 ml Sodium Chloride (Flush - Normal Saline) 10 ml IVF PRN PRN PRN Reason: Saline Flush Spironolactone (Aldactone) 12.5 mg PO QAM-WM [facility] Last Admin: 09/01/17 09:17 Dose: 12.5 mg
--- NOTE | 2017-09-01 15:19 | PQF ---
CLINICAL DOCUMENTATION IMPROVEMENT CLARIFICATION FORM: ICD-10 Updated PLEASE DO AN ADDENDUM TO THE PROGRESS NOTE WITH ANY DOCUMENTATION UPDATES OR ADDITIONS AND CARRY THROUGH TO DC SUMMARY. THANK YOU. DATE: 09/01/17 ATTN: Dr. Lugo Please exercise your independent, professional judgment in responding to the clarification form. Clinical indicators are provided on the bottom of this form for your review Please check appropriate box(es): [ ] Sepsis due to: [ x ] SIRS due to non-infectious process (please specify etiology) [ x] with organ dysfunction [ ] without organ dysfunction [ ] Severe sepsis with acute organ dysfunction of: (Examples: respiratory failure, encephalopathy, acute kidney failure, other) [ ] Septic Shock [ ] Other diagnosis [ ] Unable to determine In addition, please specify: Present on Admission (POA): [x ] Yes [ ] No [ ] Unable to determine For continuity of documentation, please document condition throughout progress notes and discharge summary. Thank You. CLINICAL INDICATORS - SIGNS / SYMPTOMS / LABS ED RECORD: TEMP 101.1 PULSE 122 RESP 14 BP 147/79 CODE GREEN EVENT DOCUMENTATION: 08/30 @ 0921: CODE JOSE CALLED D/T SEPSIS SCORE 9, HYPOTENSION, & SOB BP 88/ 55 ORDER FOR INPATIENT ACUTE 08/30 DIAGNOSIS/ REASON FOR INPT ADMISSION: SEPSIS H&P: WHITE BLOOD COUNT 12.7 SYSTEMIC INFLAMMATORY RESPONSE SYNDROME. ACUTE KIDNEY INJURY PN 08/30: PT HAS KNOWN H/O CHF W/ POOR EF & WAS FEBRILE W/ 101, W/ BODY PAINS, LIKELY VIRAL SYNDROME. SIRS. WILL START EMPERIC ANTIBIOTICS COVERING GRAM NEG & GRAM POSITIVE COCCI HYPOTENSION. PT GIVEN FLUID BOLUS W/ END ORGAN HYPOPERFUSION CAUSING HYPOXIA & ALTERED MENTAL STATUS. RISKS: H&P: HX OF NONISCHEMIC CM WITH AICD; SYSTOLIC CHF, COPD. DM 2. HTN. TREATMENT: ORDER 08/30: LEVAQUIN 500 MG IV Thank you, Aparna (This form is maintained as a part of the permanent medical record) 2014 [employer] All Rights Reserved Aparna Bo RN, BSN [email or web address] Office: [phone] [facility]
--- NOTE | 2017-09-01 18:41 | EKG ---
Test Reason : Blood Pressure : / mmHG Vent. Rate : 116 BPM Atrial Rate : 116 BPM P-R Int : 148 ms QRS Dur : 084 ms QT Int : 358 ms P-R-T Axes : 051 000 008 degrees QTc Int : 497 ms Sinus tachycardia Septal infarct (cited on or before 26-JUL-2016) Abnormal ECG When compared with ECG of 26-JUL-2016 12:14, Fusion complexes are no longer Present Confirmed by CLARENCE CUNHA (2) on 09/01/2017 6:40:37 PM Referred By: BUBBA Confirmed By:CLARENCE CUNHA
[2017-09-01] MEDS: Insulin NPH/Reg Insulin Hm 300 UNITS/3 ML VIAL SC SCH (21:09)
--- NOTE | 2017-09-01 22:20 | PDOC.CTH ---
Cardiology Progress Note - Subjective Doing better. Has not had more fevers. - Objective Vital Signs Temp Pulse Resp BP BP Pulse Ox 09/01/17 21:06 83 129/63 09/01/17 19:13 95 09/01/17 17:00 98.2 F 80 17 140/67 09/01/17 12:01 97.7 F 82 17 113/59 L 95 Weight 207 lb 1 oz 08/31/17 09/01/17 09/02/17 06:59 06:59 06:59 Intake Total 2413 1060 700 Output Total 2125 225 Balance 2413 -1065 475 - Physical Examination General/Neuro: alert & oriented x3, NAD Neck: no JVD present Lungs: CTA, unlabored respirations Heart: RRR Abdomen: NT/ND Extremities: other: (no edema.) - Telemetry Telemetry Rhythm: NSR - Labs Result Diagrams: 08/31/17 10:59 08/31/17 10:59 Troponin/CKMB CK-MB (CK-2) 1.5 ng/mL (0-6.6) 08/29/17 18:48 Troponin I 0.048 ng/mL (< 0.028) H 08/30/17 09:33 - Assessment/Plan 1. Hypotension, resovled with IV fluids 2. Non ischemic CM, EF less than 35%. 3. Fever, improved since starting abx. PLAN: - Will need VELMA for concern for endocarditis to assess length of therapy. - If VELMA unremarkable for vegetations he my be discharged from the cardiac perspective. Will do this tomorrow.
[2017-09-02] MEDS ORDERED: PROPOFOL 200 MG/20 ML VIAL ONE (06:55)
[2017-09-02] MEDS ORDERED: PROPOFOL 20 ML ONE ×2 (07:37→08:29)
[2017-09-02] MEDS: Mometasone/Formoterol 120 PUFF INHALER INH SCH ×2 (07:43→20:11)
[2017-09-02] MEDS: Furosemide 20 MG TAB PO SCH (09:22)
[2017-09-02] MEDS: Carvedilol 25 MG TAB PO SCH ×2 (09:22→22:11)
[2017-09-02] MEDS: Isosorbide Dinitrate 5 MG TAB PO SCH ×2 (09:22→22:10)
[2017-09-02] MEDS: Allopurinol 100 MG TAB PO SCH (09:22)
[2017-09-02] MEDS: Famotidine 20 MG TAB PO SCH ×2 (09:22→22:10)
[2017-09-02] MEDS: Multivitamin W/ Minerals 1 TAB PO SCH (09:23)
[2017-09-02] MEDS: Clopidogrel Bisulfate 75 MG TAB PO SCH (09:23)
[2017-09-02] MEDS: Spironolactone 25 MG TAB PO SCH (09:23)
[2017-09-02] MEDS: hydrALAZINE 25 MG TAB PO SCH ×2 (09:23→22:11)
[2017-09-02] MEDS: Sacubitril 49 MG/Valsartan 51 MG TABLET PO SCH ×2 (09:24→22:11)
[2017-09-02] MEDS: Insulin Glargine 30 UNITS in Pre-Filled Syringe 1 EACH SC SCH ×2 (09:24→22:12)
--- NOTE | 2017-09-02 14:04 | ECHO ---
TRANSESOPHAGEAL ECHOCARDIOGRAM REPORT: Date: 09/02/17 PREPROCEDURE DIAGNOSIS: Fever. DETAILS: Transesophageal echo was performed for evaluation of a fever of unknown origin and concern for endoca rditis. He was brought to the PACU for this procedure. The anesthesiology department provided sedatio n for the patient. Please see their notes for details. After adequate sedation was achieved, transe sophageal probe was inserted into the mouth and into the esophagus without issues. Multiplanar views were then obtained. FINDINGS: Left ventricle is dilated. LV function is reduced at 20%. Left atrium is dilated. Right atrium is dilated. Left atrial appendage is large appendage with normal velocities. No mass or thrombus. Right atrium is mildly dilated. There is a pacer/AICD wire in his right-sided chambers. The AICD wire has a small flailing mass, consistent with either fibrous tissue attached to the wire versus a small vegetation. Right ventricle is normal size. Aortic valve is structurally normal, three cusps. No stenosis or regurgitation. Mitral valve is structurally normal. There is mild MR. No stenosis. Tricuspid valve is structurally normal. There is mild TR. No stenosis. Pulmonary valve structurally normal. There is no stenosis or regurgitation. No vegetations in any of the valvular structures. SUMMARY: 1. Dilated left ventricle. 2. Reduced LV function, EF at 20%. 3. No major vegetations on any of valvular structures. 4. AICD lead seen in right-sided chambers. There is a small, flailing mass in the more proximal port ion of the wire, consistent with either fibrous tissue on the wire versus vegetation. Clinical correl ation is advised.
[2017-09-02] MEDS: Insulin NPH/Reg Insulin Hm 300 UNITS/3 ML VIAL SC SCH (22:12)
--- NOTE | 2017-09-02 22:42 | PDOC.PN ---
- Subjective Encounter Start Date: 09/02/17 Encounter Start Time: 09:00 Patient is seen today, alert and Oriented. He Had VELMA today, results pending. Patient is alert and oriented. No chest pain. - Objective MAR Reviewed: Yes Vital Signs & Weight: Vital Signs (12 hours) Temp Pulse Resp BP BP Pulse Ox 09/02/17 22:11 87 136/70 09/02/17 20:11 81 12 97 09/02/17 15:50 98.6 F 83 18 130/72 95 09/02/17 11:15 98.3 F 79 20 125/67 95 Weight Weight 207 lb 1 oz I&O: 09/01/17 09/02/17 09/03/17 06:59 06:59 06:59 Intake Total 1060 700 720 Output Total 2125 225 375 Balance -1065 475 345 Result Diagrams: 08/31/17 10:59 08/31/17 10:59 Additional Labs: Accuchecks 09/02/17 09/02/17 09/02/17 20:43 10:45 05:55 POC Glucose 210 H 90 119 H Phys Exam - Physical Examination HEENT: PERRLA, moist MMs Neck: no nodes, no JVD Respiratory: no wheezing, no rales Cardiovascular: RRR, no significant murmur Dx/Plan (1) SIRS (systemic inflammatory response syndrome) Code(s): R65.10 - SIRS OF NON-INFECTIOUS ORIGIN W/O ACUTE ORGAN DYSFUNCTION Status: Acute Comment: Will start Emperric Antibitoics covering gram neg and Gram positive cooci, Anerobic, With levofloxacin . Will wait to R/o Endocarditis , with VELMA. (2) Hypotension Status: Acute Qualifiers: Hypotension type: other hypotension type Qualified Code(s): I95.89 - Other hypotension Comment: Pt is GIven Fluid bolus with End organ hypoperfusion causing hypoxia and altered mental status.Will d/c Fluids continue lasix/Spironlacrone, Continue Entresto. (3) CHF (congestive heart failure), NYHA class IV Code(s): I50.9 - HEART FAILURE, UNSPECIFIED Status: Acute Comment: Worseing EF, consulted . She recommeded to Monitor him closley, pt is very noncompliant. Pt has AICD, no firing of the Defibrilator. 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 (4) COPD (chronic obstructive pulmonary disease) Status: Acute Qualifiers: COPD type: unspecified COPD Qualified Code(s): J44.9 - Chronic obstructive pulmonary disease, unspecified Comment: No exacerbation, continue Nebs prn/ (5) Cardiomyopathy Code(s): I42.9 - CARDIOMYOPATHY, UNSPECIFIED Status: Acute Comment: Likely Viral now. (6) Type 2 diabetes mellitus Status: Acute Comment: continue SSI, hold metformin. (7) NSTEMI (non-ST elevated myocardial infarction) Code(s): I21.4 - NON-ST ELEVATION (NSTEMI) MYOCARDIAL INFARCTION Status: Acute Comment: Continue Aspirin, BB, Lovenox. - Plan cont current plan of care, plan discussed w/ family, PT/OT, social media community manager, out of bed/ambulate, DVT proph w/lovenox * .
[2017-09-03] MEDS: Mometasone/Formoterol 120 PUFF INHALER INH SCH ×2 (07:22→19:11)
[2017-09-03 07:43] LABS: Anion Gap 10 mmol/L (10-20); BUN (Urea Nitrogen) 12 mg/dL (8.4-25.7); Calc. Creatinine Clearance 91 mL/min (70-130); Calcium 8.8 mg/dL (7.8-10.44); Carbon Dioxide 23 mmol/L (23-31); Chloride 109 mmol/L (98-107); Estimated GFR-MDRD 83; Glucose 138 mg/dL (80-115); Potassium 4.3 mmol/L (3.5-5.1); Sodium 138 mmol/L (136-145)
[2017-09-03] MEDS: Sacubitril 49 MG/Valsartan 51 MG TABLET PO SCH ×2 (08:25→21:21)
[2017-09-03] MEDS: Isosorbide Dinitrate 5 MG TAB PO SCH ×2 (08:25→21:22)
[2017-09-03] MEDS: hydrALAZINE 25 MG TAB PO SCH ×2 (08:26→21:21)
[2017-09-03] MEDS: Furosemide 20 MG TAB PO SCH (08:26)
[2017-09-03] MEDS: Multivitamin W/ Minerals 1 TAB PO SCH (08:26)
[2017-09-03] MEDS: Allopurinol 100 MG TAB PO SCH (08:26)
[2017-09-03] MEDS: Clopidogrel Bisulfate 75 MG TAB PO SCH (08:26)
[2017-09-03] MEDS: Famotidine 20 MG TAB PO SCH ×2 (08:26→21:21)
[2017-09-03] MEDS: Carvedilol 25 MG TAB PO SCH ×2 (08:26→21:20)
[2017-09-03] MEDS: Insulin Glargine 30 UNITS in Pre-Filled Syringe 1 EACH SC SCH ×2 (08:27→21:26)
[2017-09-03] MEDS: Spironolactone 25 MG TAB PO SCH (08:27)
--- NOTE | 2017-09-03 09:50 | CON ---
DATE OF CONSULTATION: 09/03/2017 HISTORY OF PRESENT ILLNESS: Mr. Sánchez is a 67-year-old black male with known history of nonischemic cardiomyopathy, status post CHF and was initially admitted for transient fever. He was found to be also in CHF. He is currently on a combination of ARB as well as spironolactone. We are now being co nsulted for his chronic renal failure. Patient's breathing is much improved during my exam. He denies any chest pain. REVIEW OF SYSTEMS: Appetite is fair, status post tension fever. Mild congestive heart failure. No nausea, no vomiting, no syncopal episode, no gross hematuria, no dysuria nor frequency, no abdominal pain. Appetite and energy level is fair. No headache, no sore throat, no joint pains. No hematoche randall, no melena, no hematemesis. MEDICATIONS: Currently on albuterol 2 puffs q.4, DuoNeb q.i.d., allopurinol 300 mg daily, aspirin 81 mg tab once a day, Coreg 25 mg p.o. b.i.d., Catapres 0.1 mg q.4, Plavix 75 mg once a day, Pepcid 20 mg p.o. b.i.d., furosemide 20 mg daily, hydralazine 20 mg IV q.4 p.r.n., hydralazine 50 mg p.o. b.i.d ., Humulin 70/30 20 units subcutaneously at bedtime, Humalog sliding scale, Isordil 20 mg p.o. b.i.d. , Levaquin 500 mg every day, Zofran p.r.n., sacubitril/valsartan - 49/51 mg 2 tabs p.o. b.i.d., rodrigue nolactone 12.5 mg p.o. daily. PAST MEDICAL HISTORY: Includes, 1. Ischemic cardiomyopathy. 2. Coronary artery disease, status post myocardial infarction. 3. Status post cerebrovascular accident. 4. Type 2 diabetes mellitus. 5. Hypertension. 6. Hyperlipidemia. 7. Gout. 8. Status post congestive heart failure. PAST SURGICAL HISTORY: 1. Status post AICD placement. 2. Status post cardiac catheterization. 3. Status post colonoscopy. SOCIAL HISTORY: The patient lives in [place], . He is retired. He is a , 4 children. Retired local company refrigerated truck driver, College graduate. No alcohol, no smoking, no IV drug use. ALLERGIES: None. TRAUMA: None. IMMUNIZATIONS: Up to date. HOSPITALIZATIONS: Please see past medical history. FAMILY HISTORY: No family history of ESRD. PHYSICAL EXAMINATION: VITAL SIGNS: Blood pressure is 127/68, heart rate 86, respiratory rate 16, pulse ox 94%, temperature 98.4. GENERAL: Awake, alert, comfortable, supine, not in distress. SKIN: Adequate turgor. HEENT: He has pinkish conjunctivae, anicteric sclerae. NECK: No neck mass, no carotid bruits, no JVD. CHEST: No deformities. LUNGS: Clear. Decreased breath sounds. HEART: Normal sinus rhythm. No murmurs, no gallops, no rubs. ABDOMEN: Globular, soft, nontender, no masses. EXTREMITIES: No edema, no deformities. NEUROLOGIC: Moving all extremities. No tremors. No asterixis. No ataxia. LABORATORY DATA: Laboratories of 08/31/2017; white count 10.2, hemoglobin 10.9. On 09/03/2017; sodium 138, potassium 4.3, chloride 109, carbon dioxide 23, BUN 12, creatinine 1.08. On 08/31/2017; BUN 13, creatinine 1.45. On 08/30/2017; creatinine 1.61. On 06/25/2016; creatinine of 1.57. Urinalysis of 08/29/2017 shows specific gravity of 1.020, RBC 4-6, WBC 0-3. There is trace protein. IMAGING DATA: On 09/02/2017, cardiac echo showed an EF of 20%. ASSESSMENT AND PLAN: 1. Acute kidney injury - I suspect this is hemodynamically mediated renal dysfunction secondary to h is diuretics. Renal function has actually improved this morning, suggesting that cardiac status is s tabilizing. Please note he has a decreased EF of about 20%. For the moment, agree with current yanelis benoit. We will continue current dose of his Entresto as well as diuretics. There is no indication for any dialytic intervention with this patient. 2. Proteinuria - trace protein may suggest underlying diabetic nephropathy with this patient. Destiney milan note he has longstanding history of diabetes mellitus. Agree with current insulin regimen. No misha nges to be made. 3. Ischemic cardiomyopathy, supportive care. Currently on Entresto and diuretics. 4. We will consider rechecking base met and CBC in a.m.
[2017-09-03] MEDS: HumaLOG 300 UNITS/3 ML VIAL SC PRN ×2 (11:46→17:09)
--- NOTE | 2017-09-03 12:24 | PDOC.PN ---
- Subjective Encounter Start Date: 09/03/17 Encounter Start Time: 09:00 Subjective: no sob or palp -: feels better -: at bedside - Objective MAR Reviewed: Yes Vital Signs & Weight: Vital Signs (12 hours) Temp Pulse Resp BP Pulse Ox 09/03/17 08:26 78 09/03/17 08:20 98.4 F 86 16 127/68 94 L 09/03/17 07:22 78 14 98 09/03/17 03:33 98.1 F 90 16 110/57 L 97 Weight Weight 207 lb 1.6 oz I&O: 09/02/17 09/03/17 09/04/17 06:59 06:59 06:59 Intake Total 700 870 Output Total 225 375 Balance 475 495 Result Diagrams: 08/31/17 10:59 09/03/17 07:16 Additional Labs: Accuchecks 09/03/17 09/03/17 09/02/17 10:47 05:40 20:43 POC Glucose 195 H 157 H 210 H 09/02/17 16:20 POC Glucose 146 H Phys Exam - Physical Examination HEENT: PERRLA, moist MMs Neck: no JVD, supple Respiratory: no wheezing, no rales Cardiovascular: RRR, no significant murmur Gastrointestinal: soft, non-tender, positive bowel sounds Musculoskeletal: no edema, pulses present Neurological: non-focal, moves all 4 limbs Psychiatric: normal affect, A&O x 3 Dx/Plan (1) CHF exacerbation Code(s): I50.9 - HEART FAILURE, UNSPECIFIED Status: Acute Qualifiers: Qualified Code(s): I50.9 - Heart failure, unspecified Comment: ef of 20% (2) SIRS (systemic inflammatory response syndrome) Code(s): R65.10 - SIRS OF NON-INFECTIOUS ORIGIN W/O ACUTE ORGAN DYSFUNCTION Status: Acute (3) Dyslipidemia Code(s): E78.5 - HYPERLIPIDEMIA, UNSPECIFIED Status: Chronic (4) CHF (congestive heart failure), NYHA class IV Code(s): I50.9 - HEART FAILURE, UNSPECIFIED Status: Chronic Qualifiers: Congestive heart failure type: combined (5) COPD (chronic obstructive pulmonary disease) Status: Chronic Qualifiers: COPD type: chronic bronchitis (6) Cardiomyopathy Code(s): I42.9 - CARDIOMYOPATHY, UNSPECIFIED Status: Chronic Qualifiers: Cardiomyopathy type: unspecified Qualified Code(s): I42.9 - Cardiomyopathy , unspecified Comment: Likely Viral now. (7) Hypertension Code(s): I10 - ESSENTIAL (PRIMARY) HYPERTENSION Status: Chronic Qualifiers: Hypertension type: essential hypertension Qualified Code(s): I10 - Essential (primary) hypertension (8) Type 2 diabetes mellitus Status: Chronic Qualifiers: Diabetes mellitus petroleum terminal plant operator insulin use: with petroleum terminal plant operator use Diabetes mellitus complication detail: with chronic kidney disease Chronic kidney disease stage: stage 2 (mild) (9) Chronic anemia Code(s): D64.9 - ANEMIA, UNSPECIFIED Status: Chronic - Plan is on asp, plavix, entresto, spironolactone, isordil, coreg -: lasix, hydralazine, lantus and 70/30 insulin -: ?veg over aicd wire, blood cs are -ve, mgmt per cardio advice -: is on levaquin, likely had viral (uri) syndrome -: d/w reg ckd2 and multiple potentially nephrotoxic meds * . to ambulate in hallway. DC plan per cardio advice Review of Systems - Medications/Allergies Allergies/Adverse Reactions: Allergies Allergy/AdvReac Type Severity Reaction Status Date / Time No Known Allergies Allergy Verified 08/29/17 23:18 Medications: Current Medications Acetaminophen (Tylenol) 1,000 mg PO Q6H PRN PRN Reason: Headache/Fever or Mild Pain Last Admin: 08/30/17 19:59 Dose: 1,000 mg Albuterol Sulfate (Proventil Hfa) 2 puff INH Q4H PRN PRN Reason: SOB &/or Wheezing Albuterol/Ipratropium (Duoneb) 3 ml NEB QID PRN PRN Reason: SOB &/or Wheezing Allopurinol (Zyloprim) 300 mg PO DAILY [facility] Last Admin: 09/03/17 08:26 Dose: 300 mg Aspirin (Aspirin Chewable) 81 mg PO DAILY [facility] Last Admin: 09/03/17 08:26 Dose: 81 mg Carvedilol (Coreg) 25 mg PO BID [facility] Last Admin: 09/03/17 08:26 Dose: 25 mg Clonidine (Catapres) 0.1 mg PO Q4H PRN PRN Reason: Systolic BP > 180 Clopidogrel Bisulfate (Plavix) 75 mg PO DAILY [facility] Last Admin: 09/03/17 08:26 Dose: 75 mg Dextrose/Water (Dextrose 50%) 25 gm SLOW IVP PRN PRN PRN Reason: Hypoglycemia Famotidine (Pepcid) 20 mg PO BID [facility] Last Admin: 09/03/17 08:26 Dose: 20 mg Furosemide (Lasix) 20 mg PO DAILY [facility] Last Admin: 09/03/17 08:26 Dose: 20 mg Glucagon (Glucagon) 1 mg IM PRN PRN PRN Reason: Hypoglycemia Hydralazine HCl (Apresoline) 20 mg SLOW IVP Q4H PRN PRN Reason: Systolic BP > 180 Hydralazine HCl (Apresoline) 50 mg PO BID [facility] Last Admin: 09/03/17 08:26 Dose: 50 mg Dextrose/Water (D5w) 1,000 mls @ 0 mls/hr IV .Q0M PRN; As Directed PRN Reason: Hypoglycemia Insulin Glargine 30 units/ (Miscellaneous Medication) 0.3 mls @ 0 mls/hr SC BID [facility] Last Admin: 09/03/17 08:27 Dose: 0.3 mls Levofloxacin 500 mg/ Device 100 mls @ 100 mls/hr IVPB 1100 [facility] Last Admin: 09/03/17 11:46 Dose: 100 mls Insulin Human Isoph/Insulin Regular (Humulin 70/30) 20 units SC HS [facility] Last Admin: 09/02/17 22:12 Dose: 30 unit Insulin Human Lispro (Humalog) 0 units SC .MODERATE SLIDING SC PRN PRN Reason: Moderate Correctional Scale Last Admin: 09/03/17 11:46 Dose: 2 unit Insulin Human Lispro (Humalog) 0 units SC .BEDTIME SLIDING SC PRN PRN Reason: Bedtime Correctional Scale Iron/Minerals/Multivitamins (Theragran M) 1 tab PO DAILY [facility] Last Admin: 09/03/17 08:26 Dose: 1 tab Isosorbide Dinitrate (Isordil) 20 mg PO BID [facility] Last Admin: 09/03/17 08:25 Dose: 20 mg Mometasone Furoate/Formoterol Fumar (Dulera 200 Mcg/5 Mcg Inhaler) 1 puff INH BID-RT [facility] Last Admin: 09/03/17 07:22 Dose: 1 puff Ondansetron HCl (Zofran Odt) 4 mg PO Q6H PRN PRN Reason: Nausea/Vomiting Ondansetron HCl (Zofran) 4 mg IVP Q6H PRN PRN Reason: Nausea/Vomiting Sacubitril/Valsartan (Entresto 49 Mg-51 Mg Tablet) 2 tab PO BID [facility] Last Admin: 09/03/17 08:25 Dose: 2 tab Sodium Chloride (Flush - Normal Saline) 10 ml IVF Q12HR [facility] Last Admin: 09/03/17 08:30 Dose: 10 ml Sodium Chloride (Flush - Normal Saline) 10 ml IVF PRN PRN PRN Reason: Saline Flush Spironolactone (Aldactone) 12.5 mg PO QAM-WM [facility] Last Admin: 09/03/17 08:27 Dose: 12.5 mg
--- NOTE | 2017-09-03 17:21 | PDOC.CTH ---
Cardiology Progress Note - Subjective He is doing well. Clinically he is much much better. - Objective Vital Signs Temp Pulse Resp BP Pulse Ox 09/03/17 15:35 98.0 F 75 16 142/70 H 96 09/03/17 11:45 98.5 F 83 18 106/57 L 93 L 09/03/17 08:26 78 09/03/17 08:20 98.4 F 86 16 127/68 94 L 09/03/17 07:22 78 14 98 Weight 207 lb 1.6 oz 09/02/17 09/03/17 09/04/17 06:59 06:59 06:59 Intake Total 700 870 Output Total 225 375 Balance 475 495 - Physical Examination General/Neuro: alert & oriented x3, NAD Neck: no JVD present Lungs: CTA, unlabored respirations Heart: RRR Abdomen: NT/ND Extremities: other: (no edema) - Telemetry Telemetry Rhythm: NSR - Labs Result Diagrams: 08/31/17 10:59 09/03/17 07:16 Troponin/CKMB CK-MB (CK-2) 1.5 ng/mL (0-6.6) 08/29/17 18:48 Troponin I 0.048 ng/mL (< 0.028) H 08/30/17 09:33 - Assessment/Plan 1. Hypotension, resovled with IV fluids 2. Non ischemic CM, EF less than 35%. 3. Fever, improved since starting abx. PLAN: - ID input appreciated. I agree that given the clinical scenario this small flailing mass is most likely fibrous tissue attached to the lead and not a vegetation. - He can be discharged home any time from cardiac perspective.
--- NOTE | 2017-09-03 21:06 | CON ---
DATE OF CONSULTATION: 09/03/2017 REASON FOR CONSULTATION: Abnormal findings in the transesophageal echocardiogram. HISTORY OF PRESENT ILLNESS: A 67-year-old who has a history of ischemic cardiomyopathy with AICD in place, prior myocardial infarction as well as COPD and type 2 diabetes mellitus, who presented to the hospital because of new onset of weakness, which he had experience it for about a week before admission. He checked his blood pressure, it was found to be low. He was brought in to the emergency room. On arrival, his temperature 101. He had some respiratory symptoms with headache and rhinorrhea, some cough. No visual symptoms, some sore throat. No toothache. No back pain, no dyspnea, no chest pain. No abdominal pain, diarrhea, and genitourinary symptoms. No bleeding. No joint symptoms. PAST MEDICAL HISTORY: Ischemic cardiomyopathy with AICD for the past 4 years approximately, CHF, COPD, type 2 diabetes, gout, hypertension, prior ID, TIA in 2013. MEDICATIONS: Proventil, allopurinol, aspirin, Lipitor, Symbicort, Coreg, Plavix , Lasix, hydralazine, insulin, Levemir, DuoNeb, Isordil, metformin, Entresto, and spironolactone. ALLERGIES: None. FAMILY HISTORY: Diabetes, hypertension, and lung cancer. SOCIAL HISTORY: He is retired dedicated intermodal truck driver. Former smoker, lives in the area. PHYSICAL EXAMINATION: VITAL SIGNS: T-max 100.7. He has been afebrile for the past few days, pulse 78 , respirations 14, O2 sat 97%. SKIN: Normal. No lymphadenopathy. HEENT: Ocular movements conjugate. Oral cavity moist. NECK: Supple. LUNGS: Symmetrically breath sounds. HEART: S1, S2 without murmurs. No S3, S4. ABDOMEN: Soft, not distended or tender. No ascites. No bladder distention. EXTREMITIES: No joint inflammatory activity. Pulses 1+ in dorsalis pedis. NEUROLOGIC: Plantar responses are flexure. He is awake, oriented, follows commands. LABORATORY DATA: Initial white cell count 12.7 down to 10.2, hemoglobin 12, platelets 193 with 62% neutrophils. His bands went up to 27%, creatinine 1.08. Sodium 138. His bilirubin and liver function tests were normal. Albumin 4.5 , globulin 3.3. Urinalysis was essentially normal. Two sets of blood cultures obtained, which are negative for 48 hours. Urine culture no growth for 36 hours. Transesophageal echocardiogram was completed and it showed small flailing mass consistent either with fibrous tissue attached to the wire versus small vegetation. The valves appeared normal. Transthoracic echo was not remarkable. ASSESSMENT: 1. Type 2 diabetes, ischemic cardiomyopathy with AICD. 2. Fever, respiratory symptoms. 3. Abnormalities noted on VELMA. DISCUSSION: Frequently TEEs will demonstrate fibrous strands attached to the end of Pacemaker and AICD wires, without necessarily representing infectious endocarditis, but aseptic fibrin and platelet deposits. We will check his respiratory virus PCR panel and then determine the need for antimicrobial therapy or not for management of the findings. My approach probably will be to not treat him and follow up blood cultures in the outpatient setting, even if the respiratory virus PCR does not show any pathogen. Evidently if it does show a viral pathogen, then pretty much settles the question. If it respiratory virus PCR panel was negative, then I would still not treat him with antimicrobial therapy and recheck his blood cultures in the outpatient setting and clinical progress as well. ELIZABETH
[2017-09-03] MEDS: Insulin NPH/Reg Insulin Hm 300 UNITS/3 ML VIAL SC SCH (21:27)
[2017-09-04 04:23] LABS: Anion Gap 11 mmol/L (10-20); BUN (Urea Nitrogen) 11 mg/dL (8.4-25.7); Calc. Creatinine Clearance 92 mL/min (70-130); Calcium 9.2 mg/dL (7.8-10.44); Carbon Dioxide 25 mmol/L (23-31); Chloride 108 mmol/L (98-107); Estimated GFR-MDRD 85; Glucose 105 mg/dL (80-115); Potassium 3.7 mmol/L (3.5-5.1); Sodium 140 mmol/L (136-145)
[2017-09-04] MEDS: Mometasone/Formoterol 120 PUFF INHALER INH SCH (07:32)
[2017-09-04] MEDS: Allopurinol 100 MG TAB PO SCH (08:32)
[2017-09-04] MEDS: Furosemide 20 MG TAB PO SCH (08:32)
[2017-09-04] MEDS: Sacubitril 49 MG/Valsartan 51 MG TABLET PO SCH (08:32)
[2017-09-04] MEDS: Famotidine 20 MG TAB PO SCH (08:33)
[2017-09-04] MEDS: Clopidogrel Bisulfate 75 MG TAB PO SCH (08:33)
[2017-09-04] MEDS: Carvedilol 25 MG TAB PO SCH (08:33)
[2017-09-04] MEDS: Spironolactone 25 MG TAB PO SCH (08:33)
[2017-09-04] MEDS: hydrALAZINE 25 MG TAB PO SCH (08:33)
[2017-09-04] MEDS: Multivitamin W/ Minerals 1 TAB PO SCH (08:33)
[2017-09-04] MEDS: Isosorbide Dinitrate 5 MG TAB PO SCH (08:34)
[2017-09-04] MEDS: Insulin Glargine 30 UNITS in Pre-Filled Syringe 1 EACH SC SCH (08:35)
[2017-09-04 10:47] VITALS: BP 140/74; TEMP 97.8
--- NOTE | 2017-09-04 11:32 | PDOC.PN ---
- Subjective Encounter Start Date: 09/04/17 Encounter Start Time: 07:00 Subjective: feels good, is sitting in chair, at bedside -: no sob or chest pain - Objective MAR Reviewed: Yes Vital Signs & Weight: Vital Signs (12 hours) Temp Pulse Resp BP Pulse Ox 09/04/17 10:46 97.8 F 76 16 140/74 95 09/04/17 08:33 78 09/04/17 08:00 97.5 F L 78 16 138/94 H 94 L 09/04/17 04:00 98.8 F 79 18 122/67 96 Weight Weight 207 lb 1 oz I&O: 09/03/17 09/04/17 09/05/17 06:59 06:59 06:59 Intake Total 870 920 Output Total 375 850 Balance 495 70 Result Diagrams: 08/31/17 10:59 09/04/17 03:17 Additional Labs: Accuchecks 09/04/17 09/04/17 09/04/17 10:43 06:28 05:55 POC Glucose 99 105 66 L 09/03/17 09/03/17 20:14 16:48 POC Glucose 237 H 212 H Phys Exam - Physical Examination HEENT: PERRLA, moist MMs Neck: no JVD, supple Respiratory: no wheezing, no rales Cardiovascular: RRR, no significant murmur Gastrointestinal: soft, non-tender, positive bowel sounds Musculoskeletal: no edema, pulses present Neurological: non-focal, moves all 4 limbs Psychiatric: normal affect, A&O x 3 Dx/Plan (1) CHF exacerbation Code(s): I50.9 - HEART FAILURE, UNSPECIFIED Status: Acute Qualifiers: Qualified Code(s): I50.9 - Heart failure, unspecified Comment: ef of 20% (2) SIRS (systemic inflammatory response syndrome) Code(s): R65.10 - SIRS OF NON-INFECTIOUS ORIGIN W/O ACUTE ORGAN DYSFUNCTION Status: Acute (3) Dyslipidemia Code(s): E78.5 - HYPERLIPIDEMIA, UNSPECIFIED Status: Chronic (4) CHF (congestive heart failure), NYHA class IV Code(s): I50.9 - HEART FAILURE, UNSPECIFIED Status: Chronic Qualifiers: Congestive heart failure type: combined (5) COPD (chronic obstructive pulmonary disease) Status: Chronic Qualifiers: COPD type: chronic bronchitis (6) Cardiomyopathy Code(s): I42.9 - CARDIOMYOPATHY, UNSPECIFIED Status: Chronic Qualifiers: Cardiomyopathy type: unspecified Qualified Code(s): I42.9 - Cardiomyopathy , unspecified Comment: Likely Viral now. (7) Hypertension Code(s): I10 - ESSENTIAL (PRIMARY) HYPERTENSION Status: Chronic Qualifiers: Hypertension type: essential hypertension Qualified Code(s): I10 - Essential (primary) hypertension (8) Type 2 diabetes mellitus Status: Chronic Qualifiers: Diabetes mellitus penitentiary insulin use: with penitentiary use Diabetes mellitus complication detail: with chronic kidney disease Chronic kidney disease stage: stage 2 (mild) (9) Chronic anemia Code(s): D64.9 - ANEMIA, UNSPECIFIED Status: Chronic - Plan hemostable -: viral pcr is -ve -: dc pt home -: to f/u with PCP in 1 week -: creatinine around 1 now * .
--- NOTE | 2017-09-04 12:41 | PQF ---
CLINICAL DOCUMENTATION IMPROVEMENT CLARIFICATION FORM: ICD-10 Updated PLEASE DO AN ADDENDUM TO THE PROGRESS NOTE WITH ANY DOCUMENTATION UPDATES OR ADDITIONS AND CARRY THROUGH TO DC SUMMARY. THANK YOU. DATE: 09/04/17 ATTN: Dr. Claire Please exercise your independent, professional judgment in responding to the clarification form. Clinical indicators are provided on the bottom of this form for your review Please check appropriate box(s) to clarify if the following diagnosis has been ruled in or ruled out: NSTEMI (IN PROGRESS NOTES 08/30-) [ ] Ruled in diagnosis [ ] Continue to treat [ ] Resolved [ x ] Ruled out diagnosis [ ] Cannot rule out diagnosis [ ] Other diagnosis [ ] Unable to determine In addition, please specify: Present on Admission (POA): [ ] Yes [ ] No [ ] Unable to determine For continuity of documentation, please document condition throughout progress notes and discharge summary. Thank You. CLINICAL INDICATORS - SIGNS / SYMPTOMS / LABS PN : NSTEMI (NON-ST ELEVATED MYOCARDIAL INFARCTION). ACUTE CONTINUE ASPIRIN, BB, LOVENOX LABS: TROPONIN I 08/29 @ 1848 0.019 08/29 @ 2054 0.019 08/30 @ 0038 0.014 08/30 @ 0933 0.048 RISKS: H&P: HX OF NONISCHEMIC CARDIOMYOPATHY WITH AICD. SYSTOLIC CHF. COPD. DM2, HTN. TREATMENT: H&P: CURRENT MEDICATIONS: ASPIRIN 81 MG PO DAILY COREG 25 MG PO BID PLAVIX 75 MG 1 TAB PO DAILY (This form is maintained as a part of the permanent medical record) 2014 [employer]. All Rights Reserved Aparna Bo RN, BSN [email or web address] Office: [phone] [facility]
--- NOTE | 2017-09-04 14:46 | DIS ---
DATE OF ADMISSION: 08/30/2017 DATE OF DISCHARGE: 09/04/2017 DISCHARGE DISPOSITION: To home. PRIMARY DISCHARGE DIAGNOSES: Congestive heart failure exacerbation with systolic dysfunction and ejection fraction of around 20%, systemic inflammatory response syndrome, dyslipidemia, AHA class C congestive heart failure, chronic obstructive pulmonary disease, nonischemic cardiomyopathy, hypertension, diabetes mellitus type 2, chronic anemia. PROCEDURES DONE DURING HOSPITALIZATION: Echo with 2D Doppler showed EF of 15%- 20%. H&H 11 and 32, platelet count 149. Discharge BUN and creatinine is 11 and 1.0. Troponin x3 negative. Blood cultures x2 no growth. Urine culture no growth. Respiratory virus panel, PCR is negative. INPATIENT CONSULTS: Dr. Garza for Infectious Disease, Dr. Tello for Cardiology and Dr. Ward for Nephrology. Transesophageal echo confirmed EF of 20%, no mass or thrombus in the left atrial appendage, AICD wire in the right-sided chamber and had a small flailing mass consistent with either fibrous tissue attached to the wire versus a small vegetation. DISCHARGE MEDICATIONS: Allopurinol 300 mg p.o. daily, aspirin 81 mg p.o. daily , atorvastatin 20 mg p.o. at bedtime, Symbicort inhaler 2 puffs twice daily, Coreg 25 mg p.o. twice daily, Plavix 75 mg p.o. daily, Lasix 20 mg daily, hydralazine 50 mg twice daily, NovoLog 70/30 20 units subcu before meals, Levemir 30 units subcu twice daily, DuoNebs q.6 hourly p.r.n., Isordil 20 mg twice daily, metformin 1000 mg p.o. twice daily, multivitamin 1 tab once daily, K-Dur 20 mEq p.o. daily, Entresto 97/103 mg p.o. twice daily, spironolactone 25 mg daily. ALLERGIES: No known drug allergies. DISCHARGE PLAN: The patient to follow up with primary care physician in [address] Tello as advised. BRIEF COURSE DURING HOSPITALIZATION: Patient initially got admitted on the with complaints of fever and generalized weakness. He had a temperature of 100 degrees on arrival. The patient was essentially admitted for possible upper respiratory viral illness and mild CHF exacerbation. The patient has a known history of EF of around 20%. He has nonischemic cardiomyopathy. The patient has had multiple workups done including transthoracic and transesophageal echos. Blood cultures x2 are negative. Urine culture is negative. He had a small flailing mass seen over the wire of AICD on transesophageal echo likely fibrinous tissue. He was evaluated by Dr. Garza as well. He has remained afebrile during his entire inpatient hospital stay and has remained hemodynamically stable. He needs to follow up with primary care physician in 1 week. Prior to discharge, he is ambulating and eating well. All updates were given to his as well. Please see a [id number] documentation on [facility] for the day of discharge. MTDD
--- NOTE | 2017-09-04 15:18 | PDOC.CTH ---
Cardiology Progress Note - Subjective No new issues. Breathing at baseline. - Objective Vital Signs Temp Pulse Resp BP Pulse Ox 09/04/17 10:46 97.8 F 76 16 140/74 95 09/04/17 08:33 78 09/04/17 08:00 97.5 F L 78 16 138/94 H 94 L 09/04/17 04:00 98.8 F 79 18 122/67 96 Weight 207 lb 1 oz 09/03/17 09/04/17 09/05/17 06:59 06:59 06:59 Intake Total 870 920 Output Total 375 850 Balance 495 70 - Physical Examination General/Neuro: alert & oriented x3, NAD Neck: no JVD present Lungs: CTA, unlabored respirations Heart: RRR Abdomen: NT/ND Extremities: other: (no edema) - Telemetry Telemetry Rhythm: NSR - Labs Result Diagrams: 08/31/17 10:59 09/04/17 03:17 Troponin/CKMB CK-MB (CK-2) 1.5 ng/mL (0-6.6) 08/29/17 18:48 Troponin I 0.048 ng/mL (< 0.028) H 08/30/17 09:33 - Assessment/Plan 1. Hypotension, resovled with IV fluids 2. Non ischemic CM, EF less than 35%. 3. Fever, improved since starting abx. PLAN: - May discharge home from cardiac perspective. - Keep follow up as previously scheduled.
== END 2017-09-04 11:39 | disposition home or self-care (01) | DRG 291 ==
LOC: ERS 17:15 → 2SW 20:35 → OBSVTOIN 08-30 11:36 → 2NO 08-30 16:30
PROVIDERS: ADMIT Family Medicine; ATTEND Family Medicine
PROC: B246ZZZ Ultrasonography of Right and Left Heart (ICD-10-PCS; 2017-08-30)
PROC: B246ZZ4 Ultrasonography of Right and Left Heart, Transesophageal (ICD-10-PCS; principal; 2017-09-02)
DX: I13.0 Hypertensive heart and chronic kidney disease with heart failure and stage 1 through stage 4 chronic kidney disease, or unspecified chronic kidney disease (principal); R65.11 Systemic inflammatory response syndrome (SIRS) of non-infectious origin with acute organ dysfunction; I50.23 Acute on chronic systolic (congestive) heart failure; N17.9 Acute kidney failure, unspecified; I42.9 Cardiomyopathy, unspecified; I95.9 Hypotension, unspecified; E78.5 Hyperlipidemia, unspecified; J44.9 Chronic obstructive pulmonary disease, unspecified; D63.1 Anemia in chronic kidney disease; R09.02 Hypoxemia; Z95.810 Presence of automatic (implantable) cardiac defibrillator; I25.2 Old myocardial infarction; Z86.73 Personal history of transient ischemic attack (TIA), and cerebral infarction without residual deficits; N18.3 Chronic kidney disease, stage 3 (moderate); E11.22 Type 2 diabetes mellitus with diabetic chronic kidney disease; Z79.4 Long term (current) use of insulin; R80.9 Proteinuria, unspecified
CPT/HCPCS: 36415; 36416; 71045; 80048; 80053; 81003; 81015; 82010; 82553; 83605; 83735; 83880; 84145; 84484; 85007; 85025; 85027; 87040; 87086; 87633; 93005; 93010; 93306; 93312; 93798; 93970; 94664; 96361; 96365; 96367; A4216; G8978-GP-CI; G8979-GP-CI; G8980-GP-CI; J1956; J2543; J2704; J3370; J7050

== ENCOUNTER 2018-02-26 10:46 | Day surgery (SDC) | payer MEDICARE ==
[2018-02-25 11:28] VITALS: BMI 215.5
[2018-02-26] MEDS ORDERED: KETAMINE 100 MG/ML (5ML VIAL) ONE (13:42)
[2018-02-26] MEDS ORDERED: Midazolam HCl 2 mg/2 ml Vial ONE (13:42)
[2018-02-26] MEDS ORDERED: PROPOFOL 200 MG/20 ML VIAL ONE (13:54)
--- NOTE | 2018-02-26 15:03 | OP ---
DATE OF PROCEDURE: 02/26/2018 TITLE OF PROCEDURE: Colonoscopy with snare polypectomy. PREOPERATIVE DIAGNOSES: 1. Average risk colon screening. 2. History of pacemaker defibrillator placement. POSTOPERATIVE DIAGNOSES: 1. Exam to cecum; good bowel preparation. 2. Scattered subepithelial petechiae in the sigmoid colon, most likely due to patient's chronic Plav ix and aspirin use. 3. No evidence of obvious colitis. 4. Diminutive polyp in the rectum, removed by cold snare technique. 5. Hypertrophied anal papillae. 6. Small internal hemorrhoids. 7. Otherwise normal colonoscopy. PROCEDURE IN DETAIL: Written informed consent was obtained. The patient was brought to the endoscop y suite. Total intravenous anesthesia was provided by Dr. Ugo Underwood and associates. The patient was placed in the left lateral decubitus position. A digital rectal exam was performed that was unre markable. A Pentax video colonoscope was inserted through the anal canal and advanced under direct v isualization to the cecum. Position in the cecum was verified by clear identification of the appendi ceal orifice and the ileocecal valve. The quality of the bowel preparation was good. Each colon seg ment was examined carefully as the colonoscope was slowly withdrawn from the cecum. Vascular pattern and haustral folds appeared normal. In the sigmoid colon, subepithelial petechiae were noted scatte red over several centimeters of colon. This is most likely due to an effect from his chronic aspirin and Plavix use. There was no obvious colitis. In the mid rectum, a diminutive 3 mm sessile polyp w as identified and excised with cold snare technique. The polyp was retrieved for histology. No othe r synchronous polyps were identified. In the rectum, a retroflexed view demonstrated several hypertr ophied anal papillae and small internal hemorrhoids that were not actively bleeding. The colon was t hen decompressed as the colonoscope was removed from the patient. He was transferred to the day stay surgery area for post-procedure monitoring. There were no immediate complications. RECOMMENDATIONS: 1. Await polyp results. 2. Ask the patient to call me in 1 week for pathology results. 3. Recommend repeating colonoscopy in 5 years for surveillance. 4. High fiber diet. 5. Sitz baths t.i.d. p.r.n. hemorrhoids. 6. Resume Plavix and aspirin today along with other medications. 7. Follow up with Gastroenterology as needed.
== END 2018-02-26 15:16 | disposition home or self-care (01) ==
LOC: SDC 10:46
PROVIDERS: ATTEND Internal Medicine Gastroenterology
PROC: 0DBP8ZX Excision of Rectum, Via Natural or Artificial Opening Endoscopic, Diagnostic (ICD-10-PCS; principal; 2018-02-26)
DX: Z12.11 Encounter for screening for malignant neoplasm of colon (principal); K62.1 Rectal polyp; K64.4 Residual hemorrhoidal skin tags; K64.8 Other hemorrhoids; E78.00 Pure hypercholesterolemia, unspecified; E11.9 Type 2 diabetes mellitus without complications; M10.9 Gout, unspecified; I11.0 Hypertensive heart disease with heart failure; I50.9 Heart failure, unspecified; J45.909 Unspecified asthma, uncomplicated; I25.10 Atherosclerotic heart disease of native coronary artery without angina pectoris; Z79.02 Long term (current) use of antithrombotics/antiplatelets; Z79.4 Long term (current) use of insulin; Z79.51 Long term (current) use of inhaled steroids; Z79.82 Long term (current) use of aspirin; Z79.899 Other long term (current) drug therapy; Z95.810 Presence of automatic (implantable) cardiac defibrillator
CPT/HCPCS: 36416; 88305; J2250; J2704

== ENCOUNTER 2019-02-20 20:30 | Outpatient (CLI) | payer OTHER, MEDICARE | END 2019-02-20 20:31 | disposition home or self-care (01) | LOC: SLEEPLAB 20:30 | PROVIDERS: ATTEND Internal Medicine Critical Care Medicine | DX: G47.33 Obstructive sleep apnea (adult) (pediatric) (principal); J44.9 Chronic obstructive pulmonary disease, unspecified; I50.9 Heart failure, unspecified; R53.83 Other fatigue; R06.83 Snoring; G25.89 Other specified extrapyramidal and movement disorders | CPT/HCPCS: 95810 ==

== ENCOUNTER 2021-08-13 21:44 | Emergency (ER) | payer MEDICARE, OTHER ==
[2021-08-13] MEDS ORDERED: Acetaminophen 500 MG TAB ONE (22:43)
[2021-08-13] MEDS ORDERED: Metoclopramide HCl 10 MG/2 ML VIAL ONE (22:43)
[2021-08-13] MEDS ORDERED: diphenhydrAMINE 50 MG/ML VIAL ONE (22:43)
== END 2021-08-14 00:09 | disposition home or self-care (01) ==
LOC: ERS 21:44
DX: R51.9 Headache, unspecified (principal); I11.0 Hypertensive heart disease with heart failure; I50.9 Heart failure, unspecified; I25.2 Old myocardial infarction; J44.9 Chronic obstructive pulmonary disease, unspecified; E11.9 Type 2 diabetes mellitus without complications; Z79.4 Long term (current) use of insulin; Z79.899 Other long term (current) drug therapy
CPT/HCPCS: 71045; 93005; 96365; 96375; J1200; J2765

== ENCOUNTER 2022-05-01 11:25 | Emergency (ER) | payer OTHER ==
[2022-05-01 12:04] LABS: #Eosinphils 0.2 thou/uL (0.0-0.7); #Lymphocytes 2.6 thou/uL (1.20-3.40); #Neutrophils 5.3 thou/uL (1.40-6.50); %Basophils 0.1 % (0.0-1.0); %Eosinophils 2.5 % (0.0-10.0); %Lymphocytes 28.2 % (21.0-51.0); %Neutrophils 58.1 % (42.0-75.0); Hemoglobin 12.2 g/dL (14.0-18.0); Mean Corpuscular Hemoglobin 28.9 pg (27.0-31.0); Mean Platelet Volume 8.6 fL (7.4-10.4); Platelet Count 241 10x3/uL (130-400); RBC Distribution Width 13.6 % (11.5-14.5); Red Blood Cell (RBC) Count 4.21 mill/uL (4.70-6.10); White Blood Cell (WBC) Count 9.1 10x3/uL (4.8-10.8)
[2022-05-01 12:14] LABS: ALT (SGPT) 58 U/L (8-55); AST (SGOT) 50 U/L (5-34); Albumin 3.9 g/dL (3.4-4.8); Alkaline Phosphatase 112 U/L (40-110); Anion Gap 12 mmol/L (10-20); BUN (Urea Nitrogen) 14 mg/dL (8.4-25.7); Bilirubin, Total 0.4 mg/dL (0.2-1.2); Calc. Creatinine Clearance 0 mL/min (70-130); Calcium 9.7 mg/dL (7.8-10.44); Carbon Dioxide 28 mmol/L (23-31); Chloride 98 mmol/L (98-107); Estimated GFR 53; Globulin 3.5 g/dL (2.4-3.5); Glucose 113 mg/dL (80-115); Potassium 4.1 mmol/L (3.5-5.1); Protein, Total 7.4 g/dL (5.8-8.1); Sodium 134 mmol/L (136-145)
== END 2022-05-01 14:28 | disposition home or self-care (01) ==
LOC: ERS 11:25
DX: J44.9 Chronic obstructive pulmonary disease, unspecified (principal); I11.0 Hypertensive heart disease with heart failure; I50.9 Heart failure, unspecified; E11.9 Type 2 diabetes mellitus without complications
CPT/HCPCS: 36415; 71046; 80053; 85025

== ENCOUNTER 2022-06-18 12:25 | Outpatient (CLI) | payer OTHER ==
[~2022-06-18 12:25] MED LIST: Magnevist 469MG/ML 20 ML VIAL ONE
== END 2022-06-18 12:26 | disposition home or self-care (01) ==
LOC: MRI 12:25
PROVIDERS: ATTEND Neurological Surgery
DX: D49.6 Neoplasm of unspecified behavior of brain (principal); R51.9 Headache, unspecified
CPT/HCPCS: 70553; A9579